=== PATIENT | female | born 1955 | race Caucasian/White ===

== ENCOUNTER 2017-08-29 18:27 | Inpatient (IN) | payer MEDICAID ==
[~2017-08-29 18:27] MED LIST: IOPAMIDOL (ISOVUE-300) 100 ML BTL ONE
--- NOTE | 2017-08-29 19:08 | CPEKG ---
Heart Rate: 83 RR Interval: 723 P-R Interval: 144 QRSD Interval: 84 QT Interval: 412 QTC Interval: 485 P Rolla: 51 QRS Rolla: -16 T Wave Rolla: 73 EKG Severity - OTHERWISE NORMAL ECG - EKG Impression: SINUS RHYTHM EKG Impression: BORDERLINE LEFT AXIS DEVIATION Electronically Signed By: Sloane Caballero 29-Aug-2017 21:03:46
[2017-08-29] MEDS ORDERED: ENOXAPARIN 80 MG/0.8 ML SYR SC ONE (19:20)
--- NOTE | 2017-08-29 19:20 | EDPHY ---
H & P Time Seen by Provider: 08/29/17 18:37 HPI/ROS: CHIEF COMPLAINT: Pulmonary embolism HISTORY OF PRESENT ILLNESS: 62-year-old female presents from CT scan with a pulmonary embolism. She was recently admitted to [facility] for myxedema coma. She was discharged home 1 week ago. Since discharge home, she has been getting stronger every day, but is still wheelchair-bound and her is caring for her. She had a routine follow up with her primary care physician today in the office and was noted to be hypoxic. According to the family, she was hypoxic throughout her hospitalization and was discharged home on oxygen. 1 week ago she developed left-sided pleuritic chest pain, which has persisted since then. No prior history of thromboembolism. REVIEW OF SYSTEMS: Constitutional: No fever, no chills Eyes: No visual changes ENT: No sore throat Respiratory: No cough Gastrointestinal: No nausea, no vomiting, no abdominal pain Genitourinary: no dysuria Musculoskeletal: No leg pain or swelling Skin: No rash Neurological: No headache, no weakness Psychiatric: No depression Past Medical/Surgical History: Myxedema coma Social History: , lives in own home Smoking Status: Former smoker Physical Exam: General Appearance: Alert, pleasant Eyes: Pupils equal and round, no conjunctival pallor or injection ENT, Mouth: Mucous membranes moist Neck: Normal inspection Respiratory: Rales at bases Cardiovascular: Regular rate and rhythm Gastrointestinal: Abdomen is soft and nontender Neurological: A&O, generalized weakness, gait not assessed Skin: Warm and dry Extremities: Nontender, no pedal edema Psychiatric: Flat affect Constitutional: Initial Vital Signs Temperature (C) 36.8 C 08/29/17 18:36 Heart Rate 105 H 08/29/17 18:36 Respiratory Rate 20 08/29/17 18:36 Blood Pressure 107/76 08/29/17 18:36 O2 Sat (%) 94 08/29/17 18:36 O2 Delivery Mode Room Air Allergies/Adverse Reactions: No Known Allergies Allergy (Verified 08/29/17 20:58) Home Medications: Medication Instructions Recorded Aspirin [Aspirin 81mg (*)] 81 mg PO DAILY 08/29/17 Ergocalciferol [Vitamin D2 (*)] 50,000 unit PO Q7D 08/29/17 Famotidine [Pepcid 20 MG (*)] 20 mg PO BID 08/29/17 Furosemide [Lasix 20 MG (*)] 20 mg PO DAILY@08,14 08/29/17 Levothyroxine [Synthroid 125 mcg 125 mcg PO DAILY06 08/29/17 (*)] Lisinopril [Zestril 2.5 mg (*)] 2.5 mg PO DAILY 08/29/17 Metoprolol Succinate Xr [Toprol Xl 25 mg PO DAILY 08/29/17 25 mg (*)] Mirtazapine [Remeron] 7.5 mg PO HS 08/29/17 Multivit/Mineral/Ferr Gluc 15 ml PO DAILY 08/29/17 [Cerovite Liquid (*)] Nystatin Susp [Mycostatin Oral 5 ml PO DAILY 08/29/17 Liquid] Potassium Chloride Po [Klor 20 meq PO DAILY 08/29/17 Packets 20 meq (*)] Medical Decision Making - Diagnostics EKG Interpretation: EKG interpreted by me reveals normal sinus rhythm, rate 83, no ST or T segment changes. Imaging Results: Imaging Impressions Chest/Thorax CTA 08/29/17 17:04 Impression: 1. Small volume pulmonary embolus segmental branch right lower lobe and subsegmental branch right upper lobe. 2. Bands of subsegmental atelectasis right lower lobe and left base posteriorly with small left effusion. 3. Mild cardiomegaly. Findings discussed with Mike Arias, at 1810 hour, 08/29/2017. ED Course/Re-evaluation: This patient presents from CT scan with pulmonary emboli. Oxygen saturation is 90% on room air. Discussion with the family regarding discharge home on anticoagulants versus admission to the hospital. The family would like to take her home eventually, but are having trouble caring for her at home. She is currently wheelchair-bound and needs assistance with all of her activities of daily living. She is set up to receive home health care, but has not received it yet. In addition, they are concerned about the possibility of her falling given that the she needs substantial help with transfers and with ambulation. She will be admitted to the hospital before tonight, and the plan will be to consider transfer to rehab on discharge. Lovenox 70 mg subcu given. Differential Diagnosis: Differential diagnosis includes though it is not limited to pneumonia, pneumothorax, pulmonary embolism, aortic dissection, pericarditis, acute coronary syndrome. - Data Points Laboratory Results: Laboratory Results 08/29/17 19:02 08/29/17 19:02 08/29/17 08/29/17 08/29/17 19:02 19:02 19:02 WBC 6.64 10^3/uL 10^3/uL (3.80-9.50) RBC 2.91 10^6/uL L 10^6/uL (4.18-5.33) Hgb 10.0 g/dL L g/dL (12.6-16.3) Hct 30.3 % L % (38.0-47.0) MCV 104.1 fL H fL (81.5-99.8) MCH 34.4 pg H pg (27.9-34.1) MCHC 33.0 g/dL g/dL (32.4-36.7) RDW 15.6 % H % (11.5-15.2) Plt Count 340 10^3/uL 10^3/uL (150-400) MPV 12.6 fL H fL (8.7-11.7) Neut % (Auto) 57.1 % % (39.3-74.2) Lymph % (Auto) 31.6 % % (15.0-45.0) Bradley % (Auto) 7.4 % % (4.5-13.0) Eos % (Auto) 2.1 % % (0.6-7.6) Baso % (Auto) 0.6 % % (0.3-1.7) Nucleat RBC Rel Count 0.0 % % (0.0-0.2) Absolute Neuts (auto) 3.79 10^3/uL 10^3/uL (1.70-6.50) Absolute Lymphs (auto) 2.10 10^3/uL 10^3/uL (1.00-3.00) Absolute Monos (auto) 0.49 10^3/uL 10^3/uL (0.30-0.80) Absolute Eos (auto) 0.14 10^3/uL 10^3/uL (0.03-0.40) Absolute Basos (auto) 0.04 10^3/uL 10^3/uL (0.02-0.10) Absolute Nucleated RBC 0.00 10^3/uL 10^3/uL (0-0.01) Immature Gran % 1.2 % H % (0.0-1.1) Immature Gran # 0.08 10^3/uL 10^3/uL (0.00-0.10) PT 13.6 SEC SEC (12.0-15.0) INR 1.02 (0.83-1.16) APTT 24.8 SEC SEC (23.0-38.0) Sodium 144 mEq/L mEq/L (135-145) Potassium 4.2 mEq/L mEq/L (3.5-5.2) Chloride 108 mEq/L mEq/L (97-110) Carbon Dioxide 24 mEq/l mEq/l (22-31) Anion Gap 12 mEq/L mEq/L (8-16) BUN 24 mg/dL H mg/dL (7-23) Creatinine 0.6 mg/dL mg/dL (0.6-1.0) Estimated GFR > 60 Glucose 97 mg/dL mg/dL (70-100) Calcium 9.9 mg/dL mg/dL (8.5-10.4) Troponin I < 0.012 ng/mL ng/mL (0.000-0.034) NT-Pro-B Natriuret Pep 280 pg/mL H pg/mL (0-125) Medications Given: Discontinued Medications Enoxaparin Sodium (Lovenox) 70 mg SC EDNOW ONE Stop: 08/29/17 19:21 Last Admin: 08/29/17 20:14 Dose: 70 mg Departure - Departure Disposition: [facility] Acute Clinical Impression: Pulmonary embolism Qualifiers: Pulmonary embolism type: other Chronicity: acute Acute cor pulmonale presence: without acute cor pulmonale Qualified Code(s): I26.99 - Other pulmonary embolism without acute cor pulmonale Condition: Fair
[2017-08-29 19:26] LABS: PLATELET COUNT 340 10^3/uL (150-400)
[2017-08-29 19:38] LABS: INR 1.02 (0.83-1.16); PROTIME(PATIENT) 13.6 SEC (12.0-15.0)
[2017-08-29] MEDS ORDERED: ACETAMINOPHEN 325 MG TAB PO PRN (22:35)
[2017-08-29] MEDS ORDERED: ONDANSETRON 4 MG/2 ML VIAL IVP PRN (22:35)
[2017-08-29] MEDS: NS 1,000 ML IV SCH (23:49)
--- NOTE | 2017-08-29 23:59 | PDGENHP ---
History and Physical - Chief Complaint left sided chest pain, SOB - History of Present Illness Source-at time of my interview patient is resting in her bed. Although she does acknowledge that I am there on she only mumbles yes or no answers and does not really interactive at this time. Case was discussed with patient's primary RN and EMR was reviewed. Case also discussed with the accepting hospitalist. HPI-this is a 62-year-old female with a history of a AH hypothyroidism was recently discharged after prolonged hospital stay at [facility] for myxedema coma who presents to the emergency department today with complaints of worsening shortness of breath and hypoxia. Patient had been requiring oxygen while hospitalized a few weeks ago. She is discharged home with supplemental oxygen as well. She continued to have left-sided pleuritic type chest pain worse with cough and inspiration. The patient was found to be hypoxic in the 80s at her PCPs office and so she was sent to the hospital for or further evaluation with CTA of the chest. Patient was noted to have small volume PE in this segmental branch of the right lower lobe and subsegmental branch of the right upper lobe. Patient also noted to have bilateral atelectasis and small left pleural effusion and mild cardiomegaly. Patient had persistent hypoxia with stable on her home oxygen however family also noted that time she has significant general weakness and deconditioning since her discharge. She still remains wheelchair-bound and has continues to have on significant cognitive deficits. Family at this time feel that patient is not able to return home safely and without any additional supportive services at home. At time of my interview patient was not very interactive as I mentioned above all she wanted to do was go to sleep. She initially would respond to a few yes or no questions but subsequently rolled over and turned away from me during interview. History Information - Allergies/Home Medication List Allergies/Adverse Reactions: No Known Allergies Allergy (Verified 08/29/17 20:58) Home Medications: Aspirin [Aspirin 81mg (*)] 81 mg PO DAILY 08/29/17 [Last Taken 08/29/17] Ergocalciferol [Vitamin D2 (*)] 50,000 unit PO Q7D 08/29/17 [Last Taken 08/23/17 ] Famotidine [Pepcid 20 MG (*)] 20 mg PO BID 08/29/17 [Last Taken 08/29/17 AM DOSE ] Furosemide [Lasix 20 MG (*)] 20 mg PO DAILY@08,14 08/29/17 [Last Taken 08/29/17] Levothyroxine [Synthroid 125 mcg (*)] 125 mcg PO DAILY06 08/29/17 [Last Taken ] Lisinopril [Zestril 2.5 mg (*)] 2.5 mg PO DAILY 08/29/17 [Last Taken 08/29/17] Metoprolol Succinate Xr [Toprol Xl 25 mg (*)] 25 mg PO DAILY 08/29/17 [Last Taken 08/29/17] Mirtazapine [Remeron] 7.5 mg PO HS 08/29/17 [Last Taken 08/28/17] Multivit/Mineral/Ferr Gluc [Cerovite Liquid (*)] 15 ml PO DAILY 08/29/17 [Last Taken Unknown] Nystatin Susp [Mycostatin Oral Liquid] 5 ml PO DAILY 08/29/17 [Last Taken Unknown] Potassium Chloride Po [Klor Packets 20 meq (*)] 20 meq PO DAILY 08/29/17 [Last Taken 08/29/17] I have personally reviewed and updated: family history, medical history, social history, surgical history - Past Medical History Additional medical history: Hypothyroidism with hospitalization for myxedema coma, dilated cardiomyopathy, moderate protein calorie malnutrition, GERD, generalized weakness and deconditioning. Urinary incontinence. - Surgical History Additional surgical history: Patient denies - Social History Smoking Status: Former smoker Alcohol Use: None Drug Use: None Additional social history: Patient is lives with her . Code status is full Review of Systems Review of Systems: Patient is denying all symptoms except that she is tired and wants to go to sleep ROS: 10pt was reviewed & negative except for what was stated in HPI & below Physical Exam Physical Exam: Selected Entries 08/29/17 18:36 Blood Pressure Automatic Method Heart Rate 105 H Respiratory 20 Rate O2 Sat (%) 94 Temperature (C) 36.8 C Blood Pressure 107/76 Mean Arterial 86 Pressure (MAP) O2 Delivery Room Air Mode Temperature Oral Source Temp Pulse Resp BP Pulse Ox 36.6 C 68 16 114/74 94 08/29/17 22:05 08/29/17 22:05 08/29/17 22:05 08/29/17 22:05 04/06/18 22:05 O2 (L/minute) 2 Constitutional: no apparent distress, chronically ill appearing, other (NAD. Patient is lying quietly in bed. She is minimally interactive answers with a few yes no answers and turned over was asleep.) Eyes: PERRL, anicteric sclera, EOMI (Grossly intact), No scleral injection Ears, Nose, Mouth, Throat: moist mucous membranes, No no oral mucosal ulcers, No poor dentition Cardiovascular: regular rate and rhythym, bradycardia, edema (Trace lower extremity.), other (No chest wall tenderness to palpation), No systolic murmur Peripheral Pulses: 1+: dorsalis-pedis (R), dorsalis-pedis (L) Respiratory: no respiratory distress, no rales or rhonchi, clear to auscultation , reduced air movement (Decreased inspiratory effort bibasilarly.) Gastrointestinal: normoactive bowel sounds, soft, non-tender abdomen, no palpable masses, No tenderness, No distension Genitourinary: no bladder tenderness, No philip in urethra Skin: warm, normal color, no rashes or abrasions, other (Pallor) Musculoskeletal: no muscle tenderness, generalized weakness, other (Patient able to move all extremities. 4/5 strength upper lower extremities.), No pain with ROM Neurologic: sensation intact bilaterally, weakness (Generalized), other ( Patient is awake alert and oriented to person and place only. Poor historian. Grossly nonfocal exam.), No facial droop Psychiatric: not encephalopathic, flat affect, other (Limited evaluation secondary to patient's cooperation.) Lab Data & Imaging Review 08/30/17 04:18 08/30/17 04:18 WBC 6.64 10^3/uL (3.80-9.50) 08/29/17 19:02 RBC 2.91 10^6/uL (4.18-5.33) L 08/29/17 19:02 Hgb 10.0 g/dL (12.6-16.3) L 08/29/17 19:02 Hct 30.3 % (38.0-47.0) L 08/29/17 19:02 MCV 104.1 fL (81.5-99.8) H 08/29/17 19:02 MCH 34.4 pg (27.9-34.1) H 08/29/17 19:02 MCHC 33.0 g/dL (32.4-36.7) 08/29/17 19:02 RDW 15.6 % (11.5-15.2) H 08/29/17 19:02 Plt Count 340 10^3/uL (150-400) 08/29/17 19:02 MPV 12.6 fL (8.7-11.7) H 08/29/17 19:02 Neut % (Auto) 57.1 % (39.3-74.2) 08/29/17 19:02 Lymph % (Auto) 31.6 % (15.0-45.0) 08/29/17 19:02 Major % (Auto) 7.4 % (4.5-13.0) 08/29/17 19:02 Eos % (Auto) 2.1 % (0.6-7.6) 08/29/17 19:02 Baso % (Auto) 0.6 % (0.3-1.7) 08/29/17 19:02 Nucleat RBC Rel Count 0.0 % (0.0-0.2) 08/29/17 19:02 Absolute Neuts (auto) 3.79 10^3/uL (1.70-6.50) 08/29/17 19:02 Absolute Lymphs (auto) 2.10 10^3/uL (1.00-3.00) 08/29/17 19:02 Absolute Monos (auto) 0.49 10^3/uL (0.30-0.80) 08/29/17 19:02 Absolute Eos (auto) 0.14 10^3/uL (0.03-0.40) 08/29/17 19:02 Absolute Basos (auto) 0.04 10^3/uL (0.02-0.10) 08/29/17 19:02 Absolute Nucleated RBC 0.00 10^3/uL (0-0.01) 08/29/17 19:02 Immature Gran % 1.2 % (0.0-1.1) H 08/29/17 19:02 Immature Gran # 0.08 10^3/uL (0.00-0.10) 08/29/17 19:02 PT 13.6 SEC (12.0-15.0) 08/29/17 19:02 INR 1.02 (0.83-1.16) 08/29/17 19:02 APTT 24.8 SEC (23.0-38.0) 08/29/17 19:02 Sodium 144 mEq/L (135-145) 08/29/17 19:02 Potassium 4.2 mEq/L (3.5-5.2) 08/29/17 19:02 Chloride 108 mEq/L (97-110) 08/29/17 19:02 Carbon Dioxide 24 mEq/l (22-31) 08/29/17 19:02 Anion Gap 12 mEq/L (8-16) 08/29/17 19:02 BUN 24 mg/dL (7-23) H 08/29/17 19:02 Creatinine 0.6 mg/dL (0.6-1.0) 08/29/17 19:02 Estimated GFR > 60 08/29/17 19:02 Glucose 97 mg/dL (70-100) 08/29/17 19:02 Calcium 9.9 mg/dL (8.5-10.4) 08/29/17 19:02 Troponin I < 0.012 ng/mL (0.000-0.034) 08/29/17 19:02 NT-Pro-B Natriuret Pep 280 pg/mL (0-125) H 08/29/17 19:02 Laboratory Tests 08/29/17 08/29/17 19:02 19:02 WBC 6.64 RBC 2.91 L Hgb 10.0 L Hct 30.3 L MCV 104.1 H MCH 34.4 H MCHC 33.0 RDW 15.6 H Plt Count 340 MPV 12.6 H Neut % (Auto) 57.1 Lymph % (Auto) 31.6 Major % (Auto) 7.4 Eos % (Auto) 2.1 Baso % (Auto) 0.6 Nucleat RBC Rel Count 0.0 Absolute Neuts (auto) 3.79 Absolute Lymphs (auto) 2.10 Absolute Monos (auto) 0.49 Absolute Eos (auto) 0.14 Absolute Basos (auto) 0.04 Absolute Nucleated RBC 0.00 Immature Gran % 1.2 H Immature Gran # 0.08 Sodium 144 Potassium 4.2 Chloride 108 Carbon Dioxide 24 Anion Gap 12 BUN 24 H Creatinine 0.6 Estimated GFR > 60 Glucose 97 Calcium 9.9 Troponin I < 0.012 NT-Pro-B Natriuret Pep 280 H Imaging Review: CT Pulmonary Angiogram 1727 hours Clinical Indications: R07.81 Pleuritic chest pain with low oxygenation saturation. Technique: Thinly collimated multidetector helical CT imaging was performed through the chest while 100 mL Isovue-370 were injected intravenously without complication. The images were reconstructed in multiple planes. Dose reduction techniques were utilized. Findings: CT Angiogram: There is subsegmental pulmonary embolus to the right lower lobe and involving small subsegmental branches to the right upper lobe is partially occlusive. No additional pulmonary emboli are seen. The thoracic aorta has a normal contour without evidence of aneurysm or dissection. There is no pericardial effusion. The cardiac chambers are mildly enlarged. CT Chest: There is band of atelectasis involving the right lower lobe posteriorly and adjacent to the left hemidiaphragm. There is poor inspiration. There is no consolidation. There is small left effusion. There are no pulmonary nodules. Soft tissues are unremarkable. The visualized upper abdominal structures are unremarkable during arterial phase of imaging. Skeletal system: Vertebral body heights are well-maintained. There are no lytic or sclerotic osseous lesions. Degenerative disk disease is present mid to lower thoracic spine with mild accentuation of the anterior kyphosis and marginal osteophytes. Impression: 1. Small volume pulmonary embolus segmental branch right lower lobe and subsegmental branch right upper lobe. 2. Bands of subsegmental atelectasis right lower lobe and left base posteriorly with small left effusion. 3. Mild cardiomegaly. Findings discussed with Mike Arias, at 1810 hour, 08/29/2017. Visualized and Interpreted imaging results: Yes EKG additional interpertation: Normal sinus rhythm in the 80s. LAD. QTC 45. No acute ST elevations. Assessment & Plan Assessment: 62-year-old female with history of recent hospital stay for myxedema coma presents with 1 week history of worsening dyspnea and right-sided pleuritic chest pain #Pulmonary embolism (Acute) - patient has been started on therapeutic Lovenox. Will defer to day team for evaluation and qualification for novel anticoagulant therapy versus Coumadin therapy. #hypothyroidism with history of myxedema coma - continue with levothyroxine supplementation. # dilated cardiomyopathy - continue patient's lisinopril. Metoprolol. Aspirin. #generalized weakness/deconditioning - PT OT evaluation. Case management follow -up for home health services pro #weight loss with moderate protein calorie nutrition - dietary consultation. #dehydration - elevated BUN. gentle IV fluid hydration overnight. Monitor fluid status closely. # anemia-likely related to anemia chronic disease was hypothyroidism. Continue replacement as noted above. No evidence of active bleeding at this time continue monitor H&H. # GERD-continue to famotidine. FEN - IV fluids with normal saline for gentle hydration overnight. Electrolyte monitoring replacement p.r.n.. Diet as tolerated. PPX-therapeutic Lovenox as noted above. Cor status-is full Disposition-patient admitted observation status at this time.
[2017-08-30 05:32] LABS: PLATELET COUNT 301 10^3/uL (150-400)
[2017-08-30] MEDS: ENOXAPARIN 80 MG/0.8 ML SYR SC SCH ×2 (08:42→20:44)
[2017-08-30] MEDS: FAMOTIDINE 20 MG TAB PO SCH ×2 (08:43→20:45)
[2017-08-30] MEDS: FUROSEMIDE 20 MG TAB PO SCH ×2 (08:43→15:50)
[2017-08-30] MEDS: ASPIRIN 81 MG CHEWABLE TAB PO SCH (08:43)
[2017-08-30] MEDS: METOPROLOL SUCCINATE XR 25 MG TAB PO SCH (08:43)
[2017-08-30] MEDS ORDERED: LISINOPRIL 2.5 MG TAB PO SCH (09:00)
[2017-08-30] MEDS: LEVOTHYROXINE 125 MCG TAB PO SCH (09:11)
[2017-08-30] MEDS: LISINOPRIL 5 MG TAB PO SCH (09:12)
[2017-08-30] MEDS: NS 1,000 ML IV SCH (13:00)
--- NOTE | 2017-08-30 13:50 | HOSPPROG ---
Hospitalist Progress Note Assessment/Plan: 62-year-old female with history of recent hospital stay for myxedema coma presents with 1 week history of worsening dyspnea and right-sided pleuritic chest pain. First encounter, chart reviewed. D/W RN, KESHAV. #Pulmonary embolism (Acute) - patient has been started on therapeutic Lovenox. will start coumadin #hypothyroidism with history of myxedema coma - continue with levothyroxine supplementation # dilated cardiomyopathy - continue patient's lisinopril. Metoprolol. Aspirin. #generalized weakness/deconditioning - PT OT evaluation. Case management follow-up for home health services #weight loss with moderate protein calorie nutrition - dietary consultation. #dehydration - elevated BUN. gentle IV fluid hydration overnight. Monitor fluid status closely. # anemia- likely related to anemia chronic disease with hypothyroidism. Continue replacement as noted above. No evidence of active bleeding at this time continue monitor H&H. # GERD- continue to famotidine. FEN - IV fluids with normal saline for gentle hydration overnight. Electrolyte monitoring replacement p.r.n.. Diet as tolerated. PPX-therapeutic Lovenox as noted above. Cor status-is full Disposition change to inpt status further care in the hospital setting is needed CM to eval will need C Subjective: Feeling ok today. Still very tired. Weak. No pain. Objective: Vital Signs Temp Pulse Resp BP Pulse Ox 36.4 C 66 20 108/69 96 08/30/17 11:27 08/30/17 11:27 08/30/17 11:27 08/30/17 11:27 08/30/17 11:27 Laboratory Results 08/30/17 04:18 08/30/17 04:18 08/29/17 08/30/17 08/31/17 05:59 05:59 05:59 Intake Total 600 Balance 600 PT 13.6 SEC (12.0-15.0) 08/29/17 19:02 INR 1.02 (0.83-1.16) 08/29/17 19:02 - Physical Exam Constitutional: appears nourished, not in pain, chronically ill appearing Eyes: PERRL, anicteric sclera, EOMI Ears, Nose, Mouth, Throat: moist mucous membranes, hearing normal, ears appear normal Cardiovascular: No JVD, No tachycardia, No edema Respiratory: no respiratory distress, no rales or rhonchi, reduced air movement Gastrointestinal: normoactive bowel sounds, No tenderness, No ascites Skin: warm, normal color, No mottled Musculoskeletal: normal joint ROM, no joint effusions, generalized weakness Psychiatric: not anxious, not encephalopathic, poor insight, poor judgement, poor memory ICD10 Worksheet Patient Problems: Problems Problem Status Onset Pulmonary embolism Acute
--- NOTE | 2017-08-30 14:19 | PDMN ---
Medical Necessity Medical necessity: C/M review: est. > 2 MN LOS for eval and TX of acute pulmonary embolism, dehydration, generalized weakness / deconditioning, requiring planned Dietary consult, Case Management consult, ongoing subcutaneous Lovenox, start oral Coumadin, IV fluids, acute inpt PT/OT, comorbid hypothyroidism with history of myxedema coma, dilated cardiomyopathy, weight loss, anemia, GERD per 08/30/2017 Hospitalist progress note.
--- NOTE | 2017-08-30 15:01 | ASMTCMCOM ---
CM Note CM Note Notes: Pt. is a 62-year-old woman admitted for a PE. Pt. w/ hx. of a very recent 2-week admission to [facility] for a myxedema coma. Pt. is now affected mentally and physically. Wheelchair bound and incontinent per RN. Pt. has Medicaid insurance and is open with [facility] for PT and OT. SWer spoke w/ , Antony on the phone today. Antony is very engaged and states he can care for Pt. at home with skilled homecare, but she has so been so affected by this coma and is trying to adjust to her needs. Antony very pleased to have [facility] Inpatient Rehab consult on Pt's case. Hopes they can admit her to help her get some of her abilities back. Antony and Pt. work for a [employer] and only get paid through donations. No funds for private duty care at home. SWer and hospitalist consulted. Hospitalist already entered Inpt. Rehab consult order. PT and OT to evaluate. Please note SNF care for Pt. will only be LTC Medicaid stay without rehab, so best plans for Pt's ongoing rehab recovery are Inpatient rehab or skilled homecare. Antony mentioned three adult children - two boys and one girl. Dexter is one son. Pt's PCP is through [facility] in [place] now. Rocio updated bedboard with Pt's 's information. [employer] referral made to [facility]. Plan: Inpatient Rehab vs Skilled homecare with [facility] (RN, PT, OT) Date Signed: 08/30/2017 03:01 PM Electronically Signed By:Loly Choudhary LCSW
[2017-08-30] MEDS ORDERED: WARFARIN SODIUM 5 MG TAB PO ONE (16:00)
[2017-08-30] MEDS: MIRTAZAPINE 15 MG TAB PO SCH (20:43)
[2017-08-30] MEDS ORDERED: NON-FORMULARY NEW DRUG (Mirtazapine [Remeron] 7.5 MG) PO SCH (21:00)
[2017-08-31] MEDS: NS 1,000 ML IV SCH ×2 (03:10→16:38)
[2017-08-31] MEDS: LEVOTHYROXINE 125 MCG TAB PO SCH (04:40)
[2017-08-31 05:33] LABS: INR 1.11 (0.83-1.16); PROTIME(PATIENT) 14.5 SEC (12.0-15.0)
[2017-08-31] MEDS: LISINOPRIL 5 MG TAB PO SCH (10:05)
[2017-08-31] MEDS: ASPIRIN 81 MG CHEWABLE TAB PO SCH (10:06)
[2017-08-31] MEDS: FUROSEMIDE 20 MG TAB PO SCH ×2 (10:07→15:02)
[2017-08-31] MEDS: METOPROLOL SUCCINATE XR 25 MG TAB PO SCH (10:07)
[2017-08-31] MEDS: FAMOTIDINE 20 MG TAB PO SCH ×2 (10:07→20:05)
[2017-08-31] MEDS: ENOXAPARIN 80 MG/0.8 ML SYR SC SCH ×2 (10:11→20:05)
--- NOTE | 2017-08-31 10:56 | HOSPPROG ---
Hospitalist Progress Note Assessment/Plan: 62-year-old female with history of recent hospital stay for myxedema coma presents with 1 week history of worsening dyspnea and right-sided pleuritic chest pain. #Pulmonary embolism (Acute) - patient has been started on therapeutic Lovenox. coumadin #hypothyroidism with history of myxedema coma - continue with levothyroxine supplementation TSH in good range no medication adjustments at this time # dilated cardiomyopathy - continue patient's lisinopril. Metoprolol. Aspirin. #generalized weakness/deconditioning - PT OT evaluation. I'm rec inpatient rehab awake eval #weight loss with moderate protein calorie nutrition - dietary consultation. #dehydration - elevated BUN. gentle IV fluid hydration overnight. Monitor fluid status closely. # anemia- likely related to anemia chronic disease with hypothyroidism. Continue replacement as noted above. No evidence of active bleeding at this time continue monitor H&H. # GERD- continue to famotidine. #FEN - Diet as tolerated. PPX-therapeutic Lovenox as noted above. Cor status-is full #Disposition - further care in the hospital setting is needed CM to eval await inpt rehab eval Subjective: Feels a bit better today. Still some confusion. Objective: Vital Signs Temp Pulse Resp BP Pulse Ox 36.7 C 74 16 143/92 H 90 L 08/31/17 08:00 08/31/17 10:07 08/31/17 08:00 08/31/17 10:07 08/31/17 08:00 Laboratory Results 08/31/17 04:27 08/31/17 04:27 08/30/17 08/31/17 09/01/17 05:59 05:59 05:59 Intake Total 600 1900 Balance 600 1900 PT 14.5 SEC (12.0-15.0) 08/31/17 04:27 INR 1.11 (0.83-1.16) 08/31/17 04:27 - Physical Exam Constitutional: appears nourished, not in pain, chronically ill appearing Eyes: PERRL, anicteric sclera, EOMI Ears, Nose, Mouth, Throat: moist mucous membranes, hearing normal, ears appear normal Cardiovascular: No JVD, No tachycardia, No edema Respiratory: no respiratory distress, no rales or rhonchi, reduced air movement Gastrointestinal: normoactive bowel sounds, No tenderness, No ascites Skin: warm, normal color, No mottled Musculoskeletal: normal joint ROM, pain with ROM, generalized weakness Neurologic: AAOx3 Psychiatric: not anxious, not encephalopathic, poor memory ICD10 Worksheet Patient Problems: Problems Problem Status Onset Pulmonary embolism Acute
[2017-08-31] MEDS ORDERED: WARFARIN SODIUM 5 MG TAB PO ONE (16:00)
[2017-08-31] MEDS: MIRTAZAPINE 15 MG TAB PO SCH (20:05)
[2017-09-01] MEDS: LEVOTHYROXINE 125 MCG TAB PO SCH (05:20)
[2017-09-01 05:23] LABS: INR 1.21 (0.83-1.16); PROTIME(PATIENT) 15.5 SEC (12.0-15.0)
[2017-09-01] MEDS: NS 1,000 ML IV SCH (06:04)
[2017-09-01] MEDS: LISINOPRIL 5 MG TAB PO SCH (09:47)
[2017-09-01] MEDS: FUROSEMIDE 20 MG TAB PO SCH ×2 (09:49→17:39)
[2017-09-01] MEDS: ASPIRIN 81 MG CHEWABLE TAB PO SCH (09:50)
[2017-09-01] MEDS: FAMOTIDINE 20 MG TAB PO SCH ×2 (09:50→20:13)
[2017-09-01] MEDS: METOPROLOL SUCCINATE XR 25 MG TAB PO SCH (09:50)
[2017-09-01] MEDS: ENOXAPARIN 80 MG/0.8 ML SYR SC SCH ×2 (09:53→20:14)
--- NOTE | 2017-09-01 14:59 | ASMTCMCOM ---
CM Note CM Note Notes: CM spoke w/ Dr. Sharp and Aranza at inpatient rehab regarding d/c POC. Aranza reports that she may or may not have a bed available tomorrow for pt. CM met w/ pt and family for d/c planning. Pt and family would like inpatient rehab as their first choice and the second choice is home w/ daily [facility]. Pt was previously set up w/ [facility] prior to coming to the hospital. Pt and family are not interested in restorative therapies at SNF. CM to follow. Plan: Inpatient rehab Date Signed: 09/01/2017 02:58 PM Electronically Signed By:HERSON Ontiveros
[2017-09-01] MEDS ORDERED: WARFARIN SODIUM 5 MG TAB PO ONE (16:00)
[2017-09-01] MEDS ORDERED: FUROSEMIDE 20 MG/2 ML VIAL ONE (16:14)
--- NOTE | 2017-09-01 16:14 | HOSPPROG ---
Hospitalist Progress Note Assessment/Plan: # acute PE - cont lovenox with bridge to warfarin # recent diagnosis of myxedema coma - cont synthroid # dilated cardiomyopathy - stopped lasix and aspirin - cont lisino and metop # FEN - dehydrated on presentation - stop lasix and IVF, follow # macrocytic anemia - stable # weakness/deconditioning - PT/OT; accepted to inpatient rehab # GERD - pepcid Subjective: doing better overall; discussed at length with patient, son and Objective: Vital Signs Temp Pulse Resp BP Pulse Ox 36.6 C 68 18 119/76 94 09/01/17 15:42 09/01/17 15:42 09/01/17 15:42 09/01/17 15:42 09/01/17 15:42 Laboratory Results 08/31/17 04:27 08/31/17 04:27 08/31/17 09/01/17 09/02/17 05:59 05:59 05:59 Intake Total 1900 250 Balance 1900 250 PT 15.5 SEC (12.0-15.0) H 09/01/17 04:28 INR 1.21 (0.83-1.16) H 09/01/17 04:28 chart reviewed CTA reviewed - Physical Exam Constitutional: no apparent distress Cardiovascular: regular rate and rhythym, no murmur, rub, or gallop Respiratory: no respiratory distress, no rales or rhonchi Gastrointestinal: soft, non-tender abdomen, no palpable masses ICD10 Worksheet Patient Problems: Problems Problem Status Onset Pulmonary embolism Acute
[2017-09-01] MEDS: MIRTAZAPINE 15 MG TAB PO SCH (20:13)
[2017-09-02 06:19] LABS: INR 1.57 (0.83-1.16); PROTIME(PATIENT) 18.9 SEC (12.0-15.0)
[2017-09-02] MEDS: LEVOTHYROXINE 125 MCG TAB PO SCH (06:20)
[2017-09-02] MEDS: LISINOPRIL 5 MG TAB PO SCH (09:31)
[2017-09-02] MEDS: FAMOTIDINE 20 MG TAB PO SCH ×2 (09:32→21:34)
[2017-09-02] MEDS: METOPROLOL SUCCINATE XR 25 MG TAB PO SCH (09:33)
[2017-09-02] MEDS: ENOXAPARIN 80 MG/0.8 ML SYR SC SCH ×2 (09:33→21:33)
--- NOTE | 2017-09-02 14:37 | HOSPPROG ---
Hospitalist Progress Note Assessment/Plan: # acute PE - cont lovenox with bridge to warfarin # recent diagnosis of myxedema coma - cont synthroid # dilated cardiomyopathy - stopped lasix and aspirin - cont lisino and metop # FEN - dehydrated on presentation - stop lasix and IVF, follow # macrocytic anemia - stable # weakness/deconditioning - PT/OT; accepted to inpatient rehab # GERD - pepcid # dispo - to inpatient rehab when bed available Subjective: no acute events; sitting in chair, seen with Objective: Vital Signs Temp Pulse Resp BP Pulse Ox 36.6 C 68 16 129/89 H 96 09/02/17 11:01 09/02/17 11:01 09/02/17 11:01 09/02/17 11:01 09/02/17 11:01 Laboratory Results 08/31/17 04:27 09/02/17 04:18 09/01/17 09/02/17 09/03/17 05:59 05:59 05:59 Intake Total 250 1175 500 Output Total 400 Balance 250 1175 100 PT 18.9 SEC (12.0-15.0) H 09/02/17 04:18 INR 1.57 (0.83-1.16) H 09/02/17 04:18 - Physical Exam Constitutional: no apparent distress, appears nourished Cardiovascular: regular rate and rhythym, no murmur, rub, or gallop Respiratory: no respiratory distress, no rales or rhonchi Gastrointestinal: soft, non-tender abdomen, no palpable masses ICD10 Worksheet Patient Problems: Problems Problem Status Onset Pulmonary embolism Acute
--- NOTE | 2017-09-02 15:34 | ASMTCMCOM ---
KESHAV Note CM Note Notes: KESHAV spoke w/ Aranza in inpatient rehab. Aranza does not have a bed available for pt today. There might be a bed available tomorrow. KESHAV communicated this w/ Dr. Sharp. KESHAV to follow. Plan: Inpatient rehab is the family's first choice if not daily Family [facility] Date Signed: 09/02/2017 03:34 PM Electronically Signed By:HERSON Ontiveros
[2017-09-02] MEDS ORDERED: WARFARIN SODIUM 5 MG TAB PO ONE (16:00)
[2017-09-02] MEDS: MIRTAZAPINE 15 MG TAB PO SCH (21:34)
[2017-09-03 05:29] LABS: INR 1.87 (0.83-1.16); PROTIME(PATIENT) 21.6 SEC (12.0-15.0)
[2017-09-03] MEDS: LEVOTHYROXINE 125 MCG TAB PO SCH (06:00)
[2017-09-03 08:04] VITALS: BP 144/84
[2017-09-03] MEDS: FAMOTIDINE 20 MG TAB PO SCH (09:25)
[2017-09-03] MEDS: LISINOPRIL 5 MG TAB PO SCH (09:26)
[2017-09-03] MEDS: METOPROLOL SUCCINATE XR 25 MG TAB PO SCH (09:27)
[2017-09-03] MEDS: ENOXAPARIN 80 MG/0.8 ML SYR SC SCH (09:28)
--- NOTE | 2017-09-03 11:41 | PDIAF ---
- Diagnosis Diagnosis: pe Code Status: Full Code - Medication Management Discharge Medications: Medications to Continue on Transfer Ergocalciferol [Vitamin D2 (*)] 50,000 unit PO Q7D 08/29/17 [Last Taken 08/23/17 ] Famotidine [Pepcid 20 MG (*)] 20 mg PO BID 08/29/17 [Last Taken 08/29/17 AM DOSE ] Levothyroxine [Synthroid 125 mcg (*)] 125 mcg PO DAILY06 08/29/17 [Last Taken ] Lisinopril [Zestril 2.5 mg (*)] 2.5 mg PO DAILY 08/29/17 [Last Taken 08/29/17] Metoprolol Succinate Xr [Toprol Xl 25 mg (*)] 25 mg PO DAILY 08/29/17 [Last Taken 08/29/17] Mirtazapine [Remeron] 7.5 mg PO HS 08/29/17 [Last Taken 08/28/17] Acetaminophen [Tylenol 325mg (*)] 650 mg PO Q4HRS PRN tab 09/03/17 [Last Taken Unknown] Enoxaparin [Lovenox 80 MG (*)] 70 mg SC BID syr 09/03/17 [Last Taken Unknown] Warfarin Sodium [Coumadin 5MG (*)] 7.5 mg PO ONCE@1600 tab 09/03/17 [Last Taken Unknown] Warfarin Sodium [Warfarin Pharmacy To Dose] 1 each MISC AD ea 09/03/17 [Last Taken Unknown] Discharge Medications: Refer to the Discharge Home Medication list for PRN reason. PICC Care - Routine: N/A - Orders Services needed: Registered Nurse, Physical Therapy, Occupational Therapy, Speech Language Pathologist Diet Recommendation: no restrictions on diet - Labs/Radiology PT/INR Date: 09/04/17 - Follow Up Care Current Providers and Referrals: NONE *PRIMARY CARE P,. [Primary Care Provider] - As per Instructions
[2017-09-03] MEDS ORDERED: WARFARIN SODIUM 5 MG TAB PO ONE (16:00)
[2017-09-03] MEDS ORDERED: WARFARIN SODIUM 7.5 MG TAB PO ONE (16:00)
--- NOTE | 2017-09-03 17:12 | ASDISCHSUM ---
Discharge Information Plan Status:Inpatient Rehab Medically Cleared to Leave: Discharge Date:09/03/2017 03:00 PM D/C Disposition:[facility] IP ADT D/C Disposition:[facility] IP Projected Discharge Date:09/03/2017 11:00 AM Transportation at D/C:Medicaid Transportation Discharge Delay Reason: Follow-Up Date:09/03/2017 11:00 AM Discharge Slot: Final Diagnosis: Placement Information Referral Type:*Home Health Care Services Referral ID:[id number] Provider Name: Address 1: Phone Number: Address 2: Fax Number: City: Selection Factors: State: Referral Type:[facility] Referral ID:[id number] Provider Name:[facility] Address 1:[address] Phone Number: Address 2: Fax Number: [facility]:[place] Selection Factors: State:[place] Patient Contact Information Contact Name:FRANSISCA Relationship: Address:[facility] Work Phone: City:[place] Phone: State/Zip Code:[place] [address] Email: Financial Information Financial Class:Medicaid Primary Plan Desc:MEDICAID [facility] Primary Plan Number:[id number] Secondary Plan Desc: Secondary Plan Number: Assessment Information [facility] CM Progress Note CM Note CM Note Notes: Pt. is a 62-year-old woman admitted for a PE. Pt. w/ hx. of a very recent 2-week admission to [facility] for a myxedema coma. Pt. is now affected mentally and physically. Wheelchair bound and incontinent per RN. Pt. has Medicaid insurance and is open with [facility] for PT and OT. Rocio spoke w/ , Antony on the phone today. Antony is very engaged and states he can care for Pt. at home with skilled homecare, but she has so been so affected by this coma and is trying to adjust to her needs. Antony very pleased to have [facility] Inpatient Rehab consult on Pt's case. Hopes they can admit her to help her get some of her abilities back. Antony and Pt. work for a [employer] and only get paid through donations. No funds for private duty care at home. SWer and hospitalist consulted. Hospitalist already entered Inpt. Rehab consult order. PT and OT to evaluate. Please note SNF care for Pt. will only be LT Medicaid stay without rehab, so best plans for Pt's ongoing rehab recovery are Inpatient rehab or skilled homecare. Antony mentioned three adult children - two boys and one girl. Dexter is one son. Pt's PCP is through [facility]. Rocio updated bedboard with Pt's 's information. [facility] referral made to [facility]. Plan: Inpatient Rehab vs Skilled homecare with [facility] (RN, PT, OT) Date Signed: 08/30/2017 03:01 PM Electronically Signed By:Loly Choudhary LCSW [facility] CM Progress Note CM Note CM Note Notes: CM spoke w/ Dr. Sharp and Aranza at inpatient rehab regarding d/c POC. Aranza reports that she may or may not have a bed available tomorrow for pt. CM met w/ pt and family for d/c planning. Pt and family would like inpatient rehab as their first choice and the second choice is home w/ daily [facility]. Pt was previously set up w/ [facility] prior to coming to the hospital. Pt and family are not interested in restorative therapies at SNF. CM to follow. Plan: Inpatient rehab Date Signed: 09/01/2017 02:58 PM Electronically Signed By:HERSON Ontiveros [facility] CM Progress Note KESHAV Note KESHAV Note Notes: KESHAV spoke w/ Aranza in inpatient rehab. [facility] does not have a bed available for pt today. There might be a bed available tomorrow. KESHAV communicated this w/ Dr. Sharp. KESHAV to follow. Plan: Inpatient rehab is the family's first choice if not daily [facility] Date Signed: 09/02/2017 03:34 PM Electronically Signed By:HERSON Ontiveros Case Management Discharge Plan Note Case Management Discharge Discharge Order Complete? Answers: Yes Patient to Obtain Answers: Other Notes: Inpt Rehab Medications Transportation Arranged Answers: PEGGY W/C Transport will Pick (Date 09/03/2017 02:30 PM & Time) Faxed Final Orders Answers: Yes Family Notified Answers: Yes Discharge Comments Notes: D/w ASSET PROTECTION ASSISTANT, final orders in chart. Aranza at Inpt rehab notified. Medicaid wheelchair transportation arranged through [facility]. MOSQUERA to call report. Date Signed: 09/03/2017 12:59 PM Electronically Signed By:Mariaelena Barnard RN LACE LACE Length of stay for Answers: 4-6 days current admission Acuity / Level of Answers: Yes Care: Did the patient have an inpatient admission? Comorbidities - select Answers: Coronary Artery Disease all that apply Other Notes: gerd, incontinenece,hyp oth yroid # of Emergency department Answers: 1-2 visits in the last 6 months Score: 11 Date Signed: 09/03/2017 01:03 PM Electronically Signed By:Mariaelena Barnard RN Intervention Information Intervention Type:*IM-Signed Date of Service:09/01/2017 02:28 PM Patient Type:Inpatient Staff Member:HERSON Narayanan Michelle Hours: Discipline: Severity: Comment:
--- NOTE | 2017-09-03 22:02 | GDS ---
[f rep st] DISCHARGE SUMMARY DISCHARGE DIAGNOSES: 1. Pulmonary emboli. 2. Recent diagnosis of myxedema coma. 3. Dilated cardiomyopathy. 4. Macrocytic anemia. 5. Weakness with deconditioning. PHYSICAL EXAMINATION: GENERAL: The patient is alert. VITAL SIGNS: Afebrile at 36.7, pulse 72, res piratory rate 16. Blood pressure is 144/84. She is saturating 91% on room air. I have seen and evaluated the patient on the day of discharge. HOSPITAL COURSE: Patient is a 62-year-old female who presented to the emergency room with complaints of chest pain. She was evaluated and diagnosed with: 1. Acute pulmonary emboli. During this hospitalization, she was initiated on Coumadin, as well as b ridged with Lovenox therapy. She will continue this in the outpatient setting. 2. Recent diagnosis of myxedema coma. The patient will continue her previously ordered Synthroid. Her TSH is stable. 3. Dilated cardiomyopathy. Her Lasix and aspirin have been discontinued. She will stay on lisinopr il and metoprolol. 4. Dehydration. The patient has responded well to IV fluids and discontinuation of her Lasix. 5. Microcytic anemia. This is stable. 6. Deconditioning and weakness. The patient has been accepted at inpatient rehabilitation. I think that this is an amazing opportuni ty for her to become stronger and get rehabilitation in the outpatient setting. There are no pending studies. DISCHARGE MEDICATIONS: Please refer to EMR form. New medications include: Coumadin, as well as Lovenox. She will have an INR evaluated in 2 days. DISPOSITION: She will be discharged to inpatient rehabilitation for further strengthening. TIME: I spent greater than 35 minutes in the care, coordination, and management of the patient's dis position. /[id number]/MODL
== END 2017-09-03 15:00 | DRG 134 ==
LOC: EDSTATUS 18:27 → OBSVTOIN 19:54 → F3E 21:17
PROVIDERS: ADMIT Hospitalist; ATTEND Student in an Organized Health Care Education/Training Program
DX: I26.99 Other pulmonary embolism without acute cor pulmonale (principal); I42.0 Dilated cardiomyopathy; E86.0 Dehydration; R53.1 Weakness; E44.0 Moderate protein-calorie malnutrition; E03.9 Hypothyroidism, unspecified; D63.8 Anemia in other chronic diseases classified elsewhere; K21.9 Gastro-esophageal reflux disease without esophagitis; Z87.891 Personal history of nicotine dependence; Z99.3 Dependence on wheelchair
CPT/HCPCS: 84481-90; 97110-GP; 97116-GP; 97162-GP; 97166-GO; 97530-GP; 97535-GO; G0378; J1650; J1940; Q9967

== ENCOUNTER 2017-09-03 15:30 | Inpatient (IN) | payer MEDICAID ==
[2017-09-03] MEDS ORDERED: WARFARIN SODIUM 7.5 MG TAB PO ONE (16:15)
[2017-09-03] MEDS ORDERED: ACETAMINOPHEN 325 MG TAB PO PRN (16:27)
--- NOTE | 2017-09-03 18:21 | GHP ---
[f rep st] HISTORY AND PHYSICAL POST ADMISSION PHYSICIAN EVALUATION AND REHABILITATION TREATMENT PLAN. DATE OF ADMISSION: 09/03/2017 DATE OF EVALUATION: 09/03/2017 TIME OF EVALUATION: 1640. REFERRING FACILITY: [facility] IMPAIRMENT GROUP: [id number]. DATE OF ONSET: 08/30/2017 REHABILITATION DIAGNOSIS: Dr. Plunkett. CONSULTING PHYSICIANS: There were none. REHABILITATION DIAGNOSIS: Pulmonary embolus and debility related to recent myxedema coma. ETIOLOGIC DIAGNOSIS: Other medically complex conditions. HISTORY OF PRESENT ILLNESS: This patient was recently discharged from [facility] after a prolonged stay for myxedema coma. She went home where she had physical therapy, but came to the emergency department at [facility] on 08/30/2017, with worsening dyspnea and hypoxia. She had been seen by her primary care provider and found to be hypoxic with oxygen saturation in the 80s. She had a CT angiogram of the chest, which noted small volume pulmonary emboli in a right lower lobe segmental branch and a right upper lobe subsegmental branch. There was also bilateral atelectasis and a left pleural effusion, and she was noted to have mild cardiomegaly. She was admitted to the hospital and anticoagulation was initiated with enoxaparin as well as warfarin. She also had adjustment of her antihypertensive medications to be appropriate for treating dilated cardiomyopathy. The patient's reports that she had echocardiograms x2 at [facility] and has an appointment with a manager search engine coming up for followup. STUDIES AND LABS IN THE HOSPITAL: She had several determinations of a basic metabolic profile. There were minor alterations, but overall renal function and electrolytes were within normal limits. She had an elevated chloride at 114 , possibly due to contraction alkalosis,on 09/02/2017. Troponin was negative. BNP was not consistent with heart failure at 280. TSH was elevated at 32.4. Free T4 and free T3 were normal. EKG showed sinus rhythm with borderline left axis deviation. PRECAUTIONS: She is a fall risk. ACTIVE COMORBIDITIES: She has no tier 1, tier 2 or tier 3 active comorbidities. PAST MEDICAL HISTORY: 1. History of hypothyroidism. She reports that she was treated for as a teenager and also much later in life, and that she may not have had optimal followup and discontinued taking thyroid medication due to adverse effects. 2. Hypertension. 3. Dilated cardiomyopathy, unclear whether this might or might not be related to her thyroid condition. 4. Fall and right humerus fracture. 5. Depression. 6. Myxedema coma. PRE-HOSPITAL MEDICATIONS: 1. Aspirin 81 mg p.o. daily. 2. Ergocalciferol 50,000 units p.o. q.7 days. 3. Famotidine 20 mg p.o. twice daily. 4. Furosemide 20 mg p.o. twice daily at 0800 and 1400. 5. Levothyroxine 125 mcg p.o. daily. 6. Lisinopril 2.5 mg p.o. daily. 7. Metoprolol 25 mg p.o. daily. 8. Mirtazapine 7.5 mg p.o. at bedtime. 9. Multivitamin daily. 10. Nystatin oral liquid 5 mL daily. 11. Potassium chloride 20 mEq p.o. daily. ADMISSION MEDICATIONS: 1. Acetaminophen 650 mg p.o. q.4 hours p.r.n. 2. Ergocalciferol 50,000 unit PO Q7D 3. Enoxaparin 70 mg subcutaneous twice daily. 4. Famotidine 20 mg p.o. twice daily. 5. Levothyroxine 125 mcg p.o. daily. 6. Lisinopril 2.5 mg PO DAILY 7. Metoprolol 25 mg p.o. daily. 8. Mirtazapine 7.5 mg p.o. at bedtime. 9. Warfarin 7.5 mg p.o. daily. ALLERGIES: There are no known drug allergies. PSYCHOSOCIAL HISTORY: She is . She lives with her . She has 3 adult children, 2 sons and 1 daughter who are all local. She is a former smoker. Her career has been in real estate. There are 3 platform steps to enter the house and no steps when she is in the house. FAMILY HISTORY: Noncontributory. REVIEW OF SYSTEMS: She is not in pain. She does not have a cough. She does not notice dyspnea currently. She has no chest pain or palpitations. She has no nausea, vomiting, constipation, diarrhea, and no dysuria. She has had some weakness, though prior to the onset of hypoxia and dyspnea, she was getting stronger at home. She sleeps well. She snores occasionally. Otherwise, a 10- point review of systems is negative. PHYSICAL EXAMINATION: VITAL SIGNS: Vitals this morning in the hospital, blood pressure was 144/84, heart rate was 72, respiratory rate was 16, oxygen saturation was 95% on 0.5 L. Temperature was 36.7 degrees centigrade. Her weight is 74 kg for a body mass index of 28.6. GENERAL: This is an overweight appearing woman, appears her chronologic age, lying in bed in street clothes, cooperative and in no acute distress. HEENT: Extraocular movements are intact. Pupils are equal, round, and reactive to light. Mucous membranes are moist. She has a moderately crowded airway, Mallampati class 3. Dentition is in good condition. NECK: Supple. HEART: There is a regular rate and rhythm with no murmurs, rubs, or gallops. LUNGS: Clear to auscultation bilaterally. ABDOMEN : Soft, nontender, nondistended with normoactive bowel sounds and no hepatosplenomegaly. EXTREMITIES: There is no cyanosis, clubbing, or edema. Radial and dorsalis pedis pulses are 2+ bilaterally. NEUROLOGIC: She is alert. She is oriented to the month and the year, but disoriented to the day of the month. Cranial nerves 2 through 12 are grossly intact. Regarding motor strength, she is weak bilaterally in the triceps and hip flexors and hamstrings , all of which are approximately 4/5. She has 4+ over 5 strength in the quadriceps bilaterally. Sensation is intact to light touch. Deep tendon reflexes are globally hypoactive. CURRENT LEVEL OF FUNCTION per the pre-admission screen. Regarding diet, feeding , and swallowing, she required setup and was otherwise independent. Grooming was accomplished with standby assist. Bathing needed assist. Dressing was accomplished with setup for the upper extremities. She needed assist for toileting. She needed minimal to moderate assist for bed mobility and for transfers using a front-wheeled walker. She had modified independence for seated balance and for standing balance. She ambulated 2 to 3 feet with minimal assist using a front-wheeled walker. Regarding cognition, she was noted to be alert and oriented x2 with some confusion. There are no significant changes on today's exam from the preadmission screen. IMPRESSION: This is a 62-year-old woman with a history of hypothyroidism and intermittent treatment who developed myxedema coma and had a prolonged hospitalization at [facility]. She eventually was ready for discharge and went home with home physical therapy. However, after several days , she developed dyspnea and hypoxemia and was sent to the emergency department from her primary care provider's office. There she was diagnosed with a pulmonary embolus and admitted. She was begun on anticoagulation with enoxaparin and warfarin. She was found to have deficits to mobility, activities of daily living as well as cognition. She was otherwise medically stabilized and ready for inpatient rehabilitation. Her goal is to complete a rehabilitation stay and then return home with her and home health care as well as any durable medical equipment that might be needed. For a safe discharge, it is expected that she will achieve standby assist to modified independence with ambulation, self-care, cognition and medication management. There will be medication education for the patient and her family, and nutritional counseling for the patient and her family. She will have Home Health Care and any other service as needed. She will have therapy with physical therapy, occupational therapy, and speech and language pathology for 60 minutes per day for each discipline on 5 to 7 days of the week. Her expected duration of stay is 12 to 14 days. It is anticipated that upon discharge she will continue to benefit from home health services including speech and language pathology, occupational therapy, and physical therapy. PLAN: 1. Hypoxemia with pulmonary emboli. Continue enoxaparin as a bridge toward warfarin therapy. Warfarin to be managed by Pharmacy. Continue oxygen as needed. 2. Deficits to mobility and activities of daily living and motor weakness. PT and OT to optimize mobility and activities of daily living toward the independent or modified independent level for discharge to home. 3. Cognitive effects. Possibly still with some delirium from myxedema coma, to be evaluated and treated per Speech and Language Pathology. 4. Hypertension. Continue lisinopril and metoprolol. 5. Dilated cardiomyopathy. Lisinopril and metoprolol are appropriate medications and she will have assessment for any signs or symptoms of heart failure with consideration to resume diuretic treatment. 6. Recent myxedema coma. We will get records from [facility]. 7. Vitamin D deficiency. It is likely that she can transition from 50,000 units once a week to daily medication, and I will prescribe this. 8. History of right humerus fracture. Given her long history of thyroid abnormalities, she may also have osteoporosis. Continue vitamin D. She should have a DEXA screen as an outpatient per primary care. 9. Prophylaxis. She already has a pulmonary embolus and she is on treatment dose of enoxaparin with transition toward warfarin. She has famotidine for GI prophylaxis. Followup. Her reports that she has followup scheduled with Cardiology at [facility]. The date of this will be determined and likely she can have this followup after her discharge from inpatient rehabilitation. /[id number]/MODL MTDD
[2017-09-03] MEDS: FAMOTIDINE 20 MG TAB PO SCH (20:16)
[2017-09-03] MEDS: ENOXAPARIN 80 MG/0.8 ML SYR SC SCH (20:17)
[2017-09-03] MEDS ORDERED: MIRTAZAPINE 15 MG TAB PO SCH (21:00)
[2017-09-04] MEDS: LEVOTHYROXINE 125 MCG TAB PO SCH (05:33)
[2017-09-04 08:18] LABS: INR 2.38 (0.83-1.16)
[2017-09-04] MEDS: METOPROLOL SUCCINATE XR 25 MG TAB PO SCH (08:22)
[2017-09-04] MEDS: LISINOPRIL 2.5 MG TAB PO SCH (08:23)
[2017-09-04] MEDS: CHOLECALCIFEROL VIT D3 2,000 UNITS TAB/CAP PO SCH (08:23)
[2017-09-04] MEDS: FAMOTIDINE 20 MG TAB PO SCH ×2 (08:23→21:56)
[2017-09-04] MEDS: ENOXAPARIN 80 MG/0.8 ML SYR SC SCH ×2 (08:23→21:56)
--- NOTE | 2017-09-04 10:51 | SOAPPROG ---
SOAP Progress Note Assessment/Plan: Assessment: * Hypoxemia with pulmonary emboli. Continue enoxaparin as a bridge toward warfarin therapy. Warfarin to be managed by Pharmacy. Continue oxygen as needed. Emphasized importance of incentive spirometry. * Deficits to mobility and activities of daily living and motor weakness. PT and OT to optimize mobility and activities of daily living toward the independent or modified independent level for discharge to home. * Cognitive effects. Possibly still with some delirium from myxedema coma, to be evaluated and treated per Speech and Language Pathology. * Hypertension. Continue lisinopril and metoprolol. Adequate control. * Dilated cardiomyopathy. Lisinopril and metoprolol are appropriate medications. Get records regarding echocardiograms and Cardiology notes from [facility]. Monitor any signs or symptoms of heart failure with consideration to resume diuretic treatment. * Recent myxedema coma. Get records from [facility]. Continue levothyroxine. Follow up with primary care after discharge. * Vitamin D deficiency. Transitioned from 50,000 units once a week to 2000 mg q.day of cholecalciferol. Follow up with primary care after discharge. * History of right humerus fracture. Given her long history of thyroid abnormalities, she may also have osteoporosis. Continue vitamin D. She should have a DEXA screen as an outpatient per primary care. * Prophylaxis. She already has a pulmonary embolus and she is on treatment dose of enoxaparin with transition toward warfarin. She has famotidine for GI prophylaxis. Followup. Her reports that she has followup scheduled with Cardiology at [facility]. She may need to establish with a new primary care provider. 09/04/17 12:47 Subjective: No complaints. No chest pain but reports some left rib pain. No cough or dyspnea. No fevers or chills. Slept well. Objective: Vital Signs Temp Pulse Resp BP Pulse Ox 36.4 C 88 16 133/92 H 95 09/04/17 05:36 09/04/17 08:22 09/04/17 05:36 09/04/17 08:22 09/04/17 05:36 09/03/17 09/04/17 09/05/17 05:59 05:59 05:59 Intake Total 200 180 Output Total 725 Balance -525 180 PT 26.0 SEC (12.0-15.0) H 09/04/17 06:00 INR 2.38 (0.83-1.16) H 09/04/17 06:00 Physical Exam - Physical Exam General Appearance: WD/WN, alert, no apparent distress Respiratory: normal breath sounds, crackles (Few fine crackles right lower lobe) , No rhonchi, No wheezing Cardiac/Chest: regular rate, rhythm, edema (Trace to 1+ bilateral pretibial), No JVD, No diastolic murmur, No systolic murmur Skin: normal color, warm/dry Neuro/Psych: no motor/sensory deficits, alert, normal mood/affect ICD10 Worksheet Patient Problems: Problems Problem Status Onset Pulmonary embolism Acute
--- NOTE | 2017-09-04 12:44 | PDOREHIP ---
Admission [facility] - Admission - 3 Day Assessment Period Admission Date/Day 1: 09/03/17 Day 2: 09/04/17 Day 3: 09/05/17 - Active Diagnoses Comorbidities and Co-existing Conditions at Admission: 89365. None of the Above - Skin Conditions Unhealed Pressure Ulcer (1 or more/Stage 1 or >)-Admission: 0. No
[2017-09-04] MEDS ORDERED: WARFARIN SODIUM 5 MG TAB PO ONE (16:00)
[2017-09-05] MEDS: LEVOTHYROXINE 125 MCG TAB PO SCH (05:15)
[2017-09-05 08:29] LABS: INR 2.81 (0.83-1.16); PROTIME(PATIENT) 29.5 SEC (12.0-15.0)
[2017-09-05] MEDS: LISINOPRIL 2.5 MG TAB PO SCH (09:26)
[2017-09-05] MEDS: CHOLECALCIFEROL VIT D3 2,000 UNITS TAB/CAP PO SCH (09:27)
[2017-09-05] MEDS: METOPROLOL SUCCINATE XR 25 MG TAB PO SCH (09:27)
[2017-09-05] MEDS: FAMOTIDINE 20 MG TAB PO SCH ×2 (09:33→21:52)
--- NOTE | 2017-09-05 09:57 | SOAPPROG ---
SOAP Progress Note Assessment/Plan: Assessment: * Hypoxemia with pulmonary emboli. Therapeutic INR x2 days so discontinued enoxaparin 09/05/2017. Continue warfarin management per pharmacy.. Continue oxygen as needed. Emphasized importance of incentive spirometry. * Deficits to mobility and activities of daily living and motor weakness. * Noted to be a fall risk. Mobility is variable; she can transfer with minimal assist or at other times her knees buckle and she needs much more assist. * Continue PT and OT to optimize mobility and activities of daily living toward the independent or modified independent level for discharge to home. * Cognitive effects. Possibly still with some delirium from myxedema coma. Brain MRI showed age-related changes and microvascular ischemic changes. * Moderate deficits to memory attention and executive function. * Continue Speech and Language Pathology. * Hypertension. Continue lisinopril and metoprolol. Adequate control. * Dilated cardiomyopathy. Lisinopril and metoprolol are appropriate medications. Reviewed records from [facility]. * She had severe cardiomegaly on a chest x-ray. * Echocardiogram showed normal LV size with low-normal systolic function with ejection fraction of 55-55% and moderate to severe hypokinesis in the mid septal and inferior segments. * She had a nuclear med perfusion scan which showed no perfusion defects. * Monitor any signs or symptoms of heart failure with consideration to resume diuretic treatment. * Recent myxedema coma. Get records from [facility]. Continue levothyroxine. Follow up with primary care after discharge. * Vitamin D deficiency. Transitioned from 50,000 units once a week to 2000 mg q.day of cholecalciferol. Follow up with primary care after discharge. * History of right humerus fracture. Given her long history of thyroid abnormalities, she may also have osteoporosis. Continue vitamin D. She should have a DEXA screen as an outpatient per primary care. * Prophylaxis. She already has a pulmonary embolus and she is on treatment dose of enoxaparin with transition toward warfarin. She has famotidine for GI prophylaxis. Followup. She is to follow up with rack cleaner Dr. Delcid. Follow-up was to be scheduled 2 weeks after discharge or approximately 09/08/2017. She may need to establish with a new primary care provider. 09/05/17 11:44 Subjective: No complaints. Slept well. Feels like she is breathing well. Still has some left chest discomfort. Objective: Vital Signs Temp Pulse Resp BP Pulse Ox 37.3 C 77 16 120/75 96 09/05/17 07:20 09/05/17 07:20 09/05/17 07:20 09/05/17 07:20 09/05/17 09:38 09/04/17 09/05/17 09/06/17 05:59 05:59 05:59 Intake Total 200 930 Output Total 725 400 400 Balance -525 530 -400 PT 29.5 SEC (12.0-15.0) H 09/05/17 05:15 INR 2.81 (0.83-1.16) H 09/05/17 05:15 Physical Exam - Physical Exam General Appearance: WD/WN, alert, no apparent distress Respiratory: normal breath sounds, No crackles, No rhonchi, No wheezing Cardiac/Chest: regular rate, rhythm, No edema, No JVD, No diastolic murmur, No systolic murmur Skin: normal color, warm/dry Neuro/Psych: no motor/sensory deficits, alert, normal mood/affect, oriented x 3 ICD10 Worksheet Patient Problems: Problems Problem Status Onset Pulmonary embolism Acute
[2017-09-05] MEDS: ENOXAPARIN 80 MG/0.8 ML SYR SC SCH (10:35)
[2017-09-05] MEDS ORDERED: WARFARIN SODIUM 5 MG TAB PO ONE (16:00)
[2017-09-06] MEDS: LEVOTHYROXINE 125 MCG TAB PO SCH (05:07)
[2017-09-06] MEDS: FAMOTIDINE 20 MG TAB PO SCH ×2 (08:48→19:42)
[2017-09-06] MEDS: CHOLECALCIFEROL VIT D3 2,000 UNITS TAB/CAP PO SCH (08:48)
[2017-09-06] MEDS: POLYETHYLENE GLYCOL 3350 17 GM PKT PO PRN (08:49)
[2017-09-06] MEDS: SENNOSIDES 1 TAB PO SCH ×2 (08:51→19:42)
[2017-09-06 09:24] LABS: INR 2.58 (0.83-1.16); PROTIME(PATIENT) 27.6 SEC (12.0-15.0)
--- NOTE | 2017-09-06 09:49 | SOAPPROG ---
SOAP Progress Note Assessment/Plan: Assessment/Plan: * Hypoxemia with pulmonary emboli. Therapeutic INR x2 days so discontinued enoxaparin 09/05/2017. Continue warfarin management per pharmacy. Continue oxygen as needed. Emphasized importance of incentive spirometry. * Deficits to mobility and activities of daily living and motor weakness. * Noted to be a fall risk. Mobility is variable; she can transfer with minimal assist or at other times her knees buckle and she needs much more assist. * Continue PT and OT to optimize mobility and activities of daily living toward the independent or modified independent level for discharge to home. * Cognitive effects. Possibly still with some delirium from myxedema coma. Brain MRI showed age-related changes and microvascular ischemic changes. * Moderate deficits to memory attention and executive function. * Continue Speech and Language Pathology. * Hypertension. Continue lisinopril and metoprolol. Adequate control. * Dilated cardiomyopathy. Lisinopril and metoprolol are appropriate medications. Reviewed records from [facility]. * She had severe cardiomegaly on a chest x-ray. * Echocardiogram showed normal LV size with low-normal systolic function with ejection fraction of 55-55% and moderate to severe hypokinesis in the mid septal and inferior segments. * She had a nuclear med perfusion scan which showed no perfusion defects. * Monitor any signs or symptoms of heart failure with consideration to resume diuretic treatment. * Recent myxedema coma. Get records from [facility]. Continue levothyroxine. Follow up with primary care after discharge. * Vitamin D deficiency. Transitioned from 50,000 units once a week to 2000 mg q.day of cholecalciferol. Follow up with primary care after discharge. * History of right humerus fracture. Given her long history of thyroid abnormalities, she may also have osteoporosis. Continue vitamin D. She should have a DEXA screen as an outpatient per primary care. * Prophylaxis. She already has a pulmonary embolus and she is on treatment dose of enoxaparin with transition toward warfarin. She has famotidine for GI prophylaxis. Followup. She is to follow up with associate professor of musicology Dr. Delcid. Follow-up was to be scheduled 2 weeks after discharge or approximately 09/08/2017. She may need to establish with a new primary care provider. Today's Plan: pt continues to do well - have encouraged ongoing use of the IC to maintain good saturations. She requires intermittent use of the O2 NC but overall is making great progress. PT/INR came back therapeutic again today and thus will continue with current management of medication 09/06/17 09:48 Subjective: Doing pretty well today - feeling like she needs to work out more to get stronger. Really enjoyed [employer] since she feels like she has lost her annuciation ability after all of these events. No new pain/SOB. Objective: Vital Signs Temp Pulse Resp BP Pulse Ox 37.1 C 72 16 130/76 H 90 L 09/06/17 05:15 09/06/17 05:15 09/06/17 05:15 09/06/17 05:15 09/06/17 05:15 09/05/17 09/06/17 09/07/17 05:59 05:59 05:59 Intake Total 930 250 Output Total 400 450 Balance 530 -200 PT 27.6 SEC (12.0-15.0) H 09/06/17 06:00 INR 2.58 (0.83-1.16) H 09/06/17 06:00 Physical Exam - Physical Exam General Appearance: alert, no apparent distress EENT: PERRL/EOMI Respiratory: lungs clear, normal breath sounds Cardiac/Chest: regular rate, rhythm Abdomen: normal bowel sounds, non-tender Extremities: other (trace LE edema ) Neuro/Psych: alert, normal mood/affect ICD10 Worksheet Patient Problems: Problems Problem Status Onset Pulmonary embolism Acute
[2017-09-06] MEDS: METOPROLOL SUCCINATE XR 25 MG TAB PO SCH (10:25)
[2017-09-06] MEDS: LISINOPRIL 2.5 MG TAB PO SCH (10:25)
[2017-09-06] MEDS ORDERED: BISACODYL 10 MG SUPP PR PRN (15:33)
[2017-09-06] MEDS ORDERED: WARFARIN SODIUM 7.5 MG TAB PO ONE (16:00)
[2017-09-07] MEDS: LEVOTHYROXINE 125 MCG TAB PO SCH (05:20)
[2017-09-07 09:33] LABS: INR 3.26 (0.83-1.16)
[2017-09-07] MEDS: CHOLECALCIFEROL VIT D3 2,000 UNITS TAB/CAP PO SCH (09:47)
[2017-09-07] MEDS: METOPROLOL SUCCINATE XR 25 MG TAB PO SCH (09:47)
[2017-09-07] MEDS: LISINOPRIL 2.5 MG TAB PO SCH (09:48)
[2017-09-07] MEDS: FAMOTIDINE 20 MG TAB PO SCH ×2 (09:48→20:51)
[2017-09-07] MEDS: SENNOSIDES 1 TAB PO SCH ×2 (09:48→20:51)
--- NOTE | 2017-09-07 10:13 | SOAPPROG ---
SOAP Progress Note Assessment/Plan: Assessment/Plan: * Hypoxemia with pulmonary emboli. Therapeutic INR x2 days so discontinued enoxaparin 09/05/2017. Continue warfarin management per pharmacy. Continue oxygen as needed. Emphasized importance of incentive spirometry. * Deficits to mobility and activities of daily living and motor weakness. * Noted to be a fall risk. Mobility is variable; she can transfer with minimal assist or at other times her knees buckle and she needs much more assist. * Continue PT and OT to optimize mobility and activities of daily living toward the independent or modified independent level for discharge to home. * Cognitive effects. Possibly still with some delirium from myxedema coma. Brain MRI showed age-related changes and microvascular ischemic changes. * Moderate deficits to memory attention and executive function. * Continue Speech and Language Pathology. * Hypertension. Continue lisinopril and metoprolol. Adequate control. * Dilated cardiomyopathy. Lisinopril and metoprolol are appropriate medications. Reviewed records from [facility]. * She had severe cardiomegaly on a chest x-ray. * Echocardiogram showed normal LV size with low-normal systolic function with ejection fraction of 55-55% and moderate to severe hypokinesis in the mid septal and inferior segments. * She had a nuclear med perfusion scan which showed no perfusion defects. * Monitor any signs or symptoms of heart failure with consideration to resume diuretic treatment. * Recent myxedema coma. Get records from [facility]. Continue levothyroxine. Follow up with primary care after discharge. * Vitamin D deficiency. Transitioned from 50,000 units once a week to 2000 mg q.day of cholecalciferol. Follow up with primary care after discharge. * History of right humerus fracture. Given her long history of thyroid abnormalities, she may also have osteoporosis. Continue vitamin D. She should have a DEXA screen as an outpatient per primary care. * Prophylaxis. She already has a pulmonary embolus and she is on treatment dose of enoxaparin with transition toward warfarin. She has famotidine for GI prophylaxis. Followup. She is to follow up with swaging machine adjuster Dr. Delcid. Follow-up was to be scheduled 2 weeks after discharge or approximately 09/08/2017. She may need to establish with a new primary care provider. Today's Plan: Continues to need around 1-2 L through the night. Might benefit from an overnight pulse Ox to determine amount of O2 needed. Having odiferous urine and feeling a little more "wobbly " getting a UA with culture - No associated fevers so unless manifest other symptoms will await return of culture prior to considering treatment. Have encouraged patient to increase fluid intake. INR slightly elevated today - will work with pharmacy about dosing/management. 09/07/17 10:11 Subjective: Doing pretty good today - did feel that rested pretty well last night. Reports that needed another 2L overnight but during the day not requiring any O2. [place] a little "wobbly" this morning but now that eating back to baseline. Objective: Vital Signs Temp Pulse Resp BP Pulse Ox 36.8 C 89 18 122/72 H 95 09/07/17 06:01 09/07/17 09:47 09/07/17 06:01 09/07/17 09:47 09/07/17 06:01 09/06/17 09/07/17 09/08/17 05:59 05:59 05:59 Intake Total 250 550 Output Total 450 300 Balance -200 250 PT 33.0 SEC (12.0-15.0) H 09/07/17 06:00 INR 3.26 (0.83-1.16) H 09/07/17 06:00 Physical Exam - Physical Exam General Appearance: alert, no apparent distress, other (Not ill appearing, Sitting up at the breakfast table eating) Respiratory: lungs clear, normal breath sounds Cardiac/Chest: regular rate, rhythm Abdomen: normal bowel sounds, non-tender Extremities: other (no LE edema) Neuro/Psych: alert, normal mood/affect ICD10 Worksheet Patient Problems: Problems Problem Status Onset Pulmonary embolism Acute
[2017-09-08] MEDS: LEVOTHYROXINE 125 MCG TAB PO SCH (05:04)
[2017-09-08 08:15] LABS: INR 2.68 (0.83-1.16); PROTIME(PATIENT) 28.4 SEC (12.0-15.0)
[2017-09-08] MEDS: FAMOTIDINE 20 MG TAB PO SCH ×2 (08:22→20:25)
[2017-09-08] MEDS: METOPROLOL SUCCINATE XR 25 MG TAB PO SCH (08:22)
[2017-09-08] MEDS: LISINOPRIL 2.5 MG TAB PO SCH (08:22)
[2017-09-08] MEDS: CHOLECALCIFEROL VIT D3 2,000 UNITS TAB/CAP PO SCH (08:22)
[2017-09-08] MEDS: SENNOSIDES 1 TAB PO SCH ×2 (08:23→20:27)
--- NOTE | 2017-09-08 13:51 | SOAPPROG ---
SOAP Progress Note Assessment/Plan: Assessment: * Hypoxemia with pulmonary emboli. Therapeutic INR x2 days so discontinued enoxaparin 09/05/2017. Continue warfarin management per pharmacy.. Continue oxygen as needed. * Emphasized importance of incentive spirometry. * Overnight oximetry study tonight 09/08/2017, regarding risk for obstructive sleep apnea. * Deficits to mobility and activities of daily living and motor weakness. * Initial functional independence measure 61 on 09/08/2017. Standby assist for bed mobility. Transfers required contact assist with front wheeled walker and cuing to sequence. Ambulated 15 ft with a front wheeled walker contact guard to minimal assist, slowly. Noted to be distractible. Has global weakness. Grooming and hygiene is done seated with standby assist. Upper body dressing requires setup and standby assist, lower body dressing requires contact guard assist for balance. 2 person shower transfer; bathes with standby assist. * Continue PT and OT to optimize mobility and activities of daily living toward the independent or modified independent level for discharge to home. * Cognitive effects. Possibly still with some delirium from myxedema coma. Brain MRI showed age-related changes and microvascular ischemic changes. * Very dysexecutive. Deficits to memory, new learning, problem solving and attention. * Continue Speech and Language Pathology. * Cognitive recovery from myxedema coma can take weeks to months and may be incomplete. * Hypertension. Continue lisinopril and metoprolol. Adequate control. * Dilated cardiomyopathy. Lisinopril and metoprolol are appropriate medications. Reviewed records from [facility]. * She had severe cardiomegaly on a chest x-ray. * Echocardiogram showed normal LV size with low-normal systolic function with ejection fraction of 55-55% and moderate to severe hypokinesis in the mid septal and inferior segments. * She had a nuclear perfusion scan which showed no perfusion defects. * Monitor any signs or symptoms of heart failure with consideration to resume diuretic treatment. * Recent myxedema coma. Continue levothyroxine. Follow up with primary care after discharge. * Vitamin D deficiency. Transitioned from 50,000 units once a week to 2000 mg q.day of cholecalciferol. Follow up with primary care after discharge. * History of right humerus fracture. Given her long history of thyroid abnormalities, she may also have osteoporosis. Continue vitamin D. She should have a DEXA screen as an outpatient per primary care. * Prophylaxis. She already has a pulmonary embolus and she is on treatment dose of enoxaparin with transition toward warfarin. She has famotidine for GI prophylaxis. Attended staffing, 15 min. Discussed with case management, dietitian, nursing, PT, OT, PRODUCT DESIGNER. Plans to return home with . Set tentative discharge date of 09/18/2017. Followup. She is to follow up with entry level manager Dr. Delcid. Follow-up was to be scheduled 2 weeks after discharge or approximately 09/08/2017. She may need to establish with a new primary care provider. 09/08/17 13:44 Subjective: No complaints. Feels that she slept well last night. Not in pain. No cough or dyspnea, no fevers or chills. Objective: Vital Signs Temp Pulse Resp BP Pulse Ox 36.9 C 84 16 112/78 92 09/08/17 05:06 09/08/17 08:22 09/08/17 05:05 09/08/17 08:22 09/07/17 23:06 09/07/17 09/08/17 09/09/17 05:59 05:59 05:59 Intake Total 550 650 325 Output Total 300 550 Balance 250 100 325 PT 28.4 SEC (12.0-15.0) H 09/08/17 06:00 INR 2.68 (0.83-1.16) H 09/08/17 06:00 - Time Spent With Patient Time Spent With Patient: Greater than 35 min floor time today, including more than 50% of time in coordination of care during staffing meeting, and counseling patient and family. Physical Exam - Physical Exam General Appearance: WD/WN, alert, no apparent distress Respiratory: normal breath sounds, No crackles, No rhonchi, No wheezing Cardiac/Chest: regular rate, rhythm, No edema, No diastolic murmur, No systolic murmur Skin: normal color, warm/dry Neuro/Psych: alert, normal mood/affect ICD10 Worksheet Patient Problems: Problems Problem Status Onset Pulmonary embolism Acute
[2017-09-08] MEDS ORDERED: WARFARIN SODIUM 5 MG TAB PO ONE (16:00)
[2017-09-08] MEDS: NYSTATIN POWDER 15 GM BTL TP SCH ×2 (16:37→20:29)
[2017-09-09] MEDS: LEVOTHYROXINE 125 MCG TAB PO SCH (05:47)
[2017-09-09] MEDS: FAMOTIDINE 20 MG TAB PO SCH ×2 (07:36→21:00)
[2017-09-09] MEDS: CHOLECALCIFEROL VIT D3 2,000 UNITS TAB/CAP PO SCH (07:37)
[2017-09-09] MEDS: LISINOPRIL 2.5 MG TAB PO SCH (07:39)
[2017-09-09] MEDS: SENNOSIDES 1 TAB PO SCH ×2 (07:39→21:01)
[2017-09-09] MEDS: METOPROLOL SUCCINATE XR 25 MG TAB PO SCH (07:40)
[2017-09-09] MEDS: NYSTATIN POWDER 15 GM BTL TP SCH ×3 (07:43→21:01)
[2017-09-09 08:07] LABS: INR 2.72 (0.83-1.16); PROTIME(PATIENT) 28.8 SEC (12.0-15.0)
[2017-09-09] MEDS ORDERED: WARFARIN SODIUM 5 MG TAB PO ONE (16:00)
[2017-09-10] MEDS: LEVOTHYROXINE 125 MCG TAB PO SCH (05:32)
[2017-09-10] MEDS: CHOLECALCIFEROL VIT D3 2,000 UNITS TAB/CAP PO SCH (08:23)
[2017-09-10] MEDS: LISINOPRIL 2.5 MG TAB PO SCH (08:23)
[2017-09-10] MEDS: FAMOTIDINE 20 MG TAB PO SCH ×2 (08:23→21:20)
[2017-09-10] MEDS: METOPROLOL SUCCINATE XR 25 MG TAB PO SCH (08:24)
[2017-09-10] MEDS: SENNOSIDES 1 TAB PO SCH ×2 (08:25→21:20)
[2017-09-10 08:33] LABS: INR 3.12 (0.83-1.16); PROTIME(PATIENT) 31.9 SEC (12.0-15.0)
[2017-09-10] MEDS: NYSTATIN POWDER 15 GM BTL TP SCH ×3 (09:50→21:21)
[2017-09-10] MEDS: POLYETHYLENE GLYCOL 3350 17 GM PKT PO PRN (09:57)
--- NOTE | 2017-09-10 14:28 | SOAPPROG ---
SOAP Progress Note Assessment/Plan: Assessment: * Hypoxemia with pulmonary emboli. Therapeutic INR x2 days so discontinued enoxaparin 09/05/2017. Continue warfarin management per pharmacy.. Continue oxygen as needed. * Continue incentive spirometry. * Deficits to mobility and activities of daily living and motor weakness. * Initial functional independence measure 61 on 09/08/2017. Standby assist for bed mobility. Transfers required contact assist with front wheeled walker and cuing to sequence. Ambulated 15 ft with a front wheeled walker contact guard to minimal assist, slowly. Noted to be distractible. Has global weakness. Grooming and hygiene is done seated with standby assist. Upper body dressing requires setup and standby assist, lower body dressing requires contact guard assist for balance. 2 person shower transfer; bathes with standby assist. * Continue PT and OT to optimize mobility and activities of daily living toward the independent or modified independent level for discharge to home. * Cognitive effects. Possibly still with some delirium from myxedema coma. Brain MRI showed age-related changes and microvascular ischemic changes. * Very dysexecutive. Deficits to memory, new learning, problem solving and attention. * Continue Speech and Language Pathology. * Cognitive recovery from myxedema coma can take weeks to months and may be incomplete. * Hypertension. Continue lisinopril and metoprolol. Adequate control. * Dizziness. +/- consistent with BPPV. Check orthostatics in AM. * Dilated cardiomyopathy. Lisinopril and metoprolol are appropriate medications. Reviewed records from [facility]. * She had severe cardiomegaly on a chest x-ray. * Echocardiogram showed normal LV size with low-normal systolic function with ejection fraction of 55-55% and moderate to severe hypokinesis in the mid septal and inferior segments. * She had a nuclear perfusion scan which showed no perfusion defects. * Monitor any signs or symptoms of heart failure with consideration to resume diuretic treatment. * Recent myxedema coma. Continue levothyroxine. Follow up with primary care after discharge. * Vitamin D deficiency. Transitioned from 50,000 units once a week to 2000 mg q.day of cholecalciferol. Follow up with primary care after discharge. * History of right humerus fracture. Given her long history of thyroid abnormalities, she may also have osteoporosis. Continue vitamin D. She should have a DEXA screen as an outpatient per primary care. * Prophylaxis. She already has a pulmonary embolus and she is on treatment dose of enoxaparin with transition toward warfarin. She has famotidine for GI prophylaxis. Plans to return home with . Tentative discharge date is 09/18/2017. Followup. She is to follow up with scheduling manager Dr. Delcid. Follow-up was to be scheduled 2 weeks after discharge or approximately 09/08/2017. She may need to establish with a new primary care provider. 09/10/17 14:24 Subjective: Reports feeling dizzy when she 1st gets up in the morning. She thinks there is a component of spinning but she is not sure that specifically positional. She says it has been going on for years. Otherwise without complaints. No cough or dyspnea, no fevers or chills. No dysuria. Objective: Vital Signs Temp Pulse Resp BP Pulse Ox 36.7 C 88 16 121/82 H 94 09/10/17 07:19 09/10/17 13:59 09/10/17 07:19 09/10/17 13:59 09/10/17 07:19 Microbiology 09/07/17 13:40 Urine Culture - Final Urine,Clean Catch Escherichia Coli One [place] Type 09/09/17 09/10/17 09/11/17 05:59 05:59 05:59 Intake Total 725 1220 510 Output Total 500 1250 Balance 225 -30 510 PT 31.9 SEC (12.0-15.0) H 09/10/17 06:00 INR 3.12 (0.83-1.16) H 09/10/17 06:00 Physical Exam - Physical Exam General Appearance: WD/WN, alert, no apparent distress Respiratory: normal breath sounds, No crackles, No rhonchi, No wheezing Cardiac/Chest: regular rate, rhythm, No edema, No diastolic murmur, No systolic murmur Skin: normal color, warm/dry Neuro/Psych: alert, normal mood/affect, oriented x 3, No motor weakness ICD10 Worksheet Patient Problems: Problems Problem Status Onset Pulmonary embolism Acute
[2017-09-10] MEDS ORDERED: WARFARIN SODIUM 2.5 MG TAB PO ONE (16:00)
[2017-09-11] MEDS: LEVOTHYROXINE 125 MCG TAB PO SCH (05:55)
[2017-09-11 08:21] LABS: INR 3.23 (0.83-1.16); PROTIME(PATIENT) 32.8 SEC (12.0-15.0)
--- NOTE | 2017-09-11 08:58 | SOAPPROG ---
SOAP Progress Note Assessment/Plan: 62 yo F with PE following myxedema coma, complicated by delirium. Today's update: INR is 3.12, no bleeding. Working with pharmacy on dosing. Appreciate assistance. Denies any symptoms of delirium, dizziness symptoms are most consistent with vertigo and likely benign paroxysmal positional vertigo. Encouraged her to work with therapy on the Marilin maneuver. Weights have been relatively stable but she does have lower extremity edema, restarting furosemide. All medical issues are new to this provider. * Hypoxemia with pulmonary emboli. Therapeutic INR x2 days so discontinued enoxaparin 09/05/2017. Continue warfarin management per pharmacy.. Continue oxygen as needed. * Continue incentive spirometry. * Deficits to mobility and activities of daily living and motor weakness. * Initial functional independence measure 61 on 09/08/2017. Standby assist for bed mobility. Transfers required contact assist with front wheeled walker and cuing to sequence. Ambulated 15 ft with a front wheeled walker contact guard to minimal assist, slowly. Noted to be distractible. Has global weakness. Grooming and hygiene is done seated with standby assist. Upper body dressing requires setup and standby assist, lower body dressing requires contact guard assist for balance. 2 person shower transfer; bathes with standby assist. * Continue PT and OT to optimize mobility and activities of daily living toward the independent or modified independent level for discharge to home. * Cognitive effects. Possibly still with some delirium from myxedema coma. Brain MRI showed age-related changes and microvascular ischemic changes. * Very dysexecutive. Deficits to memory, new learning, problem solving and attention. * Continue Speech and Language Pathology. * Cognitive recovery from myxedema coma can take weeks to months and may be incomplete. * Hypertension. Continue lisinopril and metoprolol. Adequate control. * Dizziness. +/- consistent with BPPV. orthostatics negative. * Work with therapies on Marilin maneuver * Dilated cardiomyopathy. Lisinopril and metoprolol are appropriate medications. Reviewed records from [facility]. * She had severe cardiomegaly on a chest x-ray. * Echocardiogram showed normal LV size with low-normal systolic function with ejection fraction of 55-55% and moderate to severe hypokinesis in the mid septal and inferior segments. * She had a nuclear perfusion scan which showed no perfusion defects. * Restart furosemide 20 mg bid at 9 and 1500, home dose * Recent myxedema coma. Continue levothyroxine. Follow up with primary care after discharge. * Vitamin D deficiency. Transitioned from 50,000 units once a week to 2000 mg q.day of cholecalciferol. Follow up with primary care after discharge. * History of right humerus fracture. Given her long history of thyroid abnormalities, she may also have osteoporosis. Continue vitamin D. She should have a DEXA screen as an outpatient per primary care. * Prophylaxis. She already has a pulmonary embolus and she is on warfarin. She has famotidine for GI prophylaxis. * DVT Warfarin with goal INR of 2-3 Plans to return home with . Tentative discharge date is 09/18/2017. Followup. She is to follow up with watch repairer Dr. Delcid. Follow-up was to be scheduled 2 weeks after discharge or approximately 09/08/2017. She may need to establish with a new primary care provider. 09/11/17 08:33 Subjective: Chief complaint: Cold night before No acute events overnight. She endorses that it was cold in her room, it appears he may be was not on. Denies any new shortness of breath or chest pain , no new numbness, tingling, or weakness. Her weight has been stable but possibly slightly up, highly variable. She endorses worse edema in her lower extremities the last couple days. Denies any orthostasis, orthostatics were negative. She endorses ongoing vertigo associated with rapid head movements and rolling over in bed. Denies any nightmares or hallucinations, no confusion. Objective: Vital Signs Temp Pulse Resp BP Pulse Ox 36.7 C 67 16 120/68 96 09/11/17 06:15 09/11/17 06:15 09/11/17 06:15 09/11/17 06:15 09/11/17 06:15 09/10/17 09/11/17 09/12/17 05:59 05:59 05:59 Intake Total 1220 760 Output Total 1250 300 Balance -30 460 PT 32.8 SEC (12.0-15.0) H 09/11/17 06:10 INR 3.23 (0.83-1.16) H 09/11/17 06:10 Physical Exam - Physical Exam General Appearance: WD/WN, alert, no apparent distress EENT: No scleral icterus (R), No scleral icterus (L) Respiratory: No respiratory distress, No accessory muscle use Cardiac/Chest: normal peripheral pulses, regular rate, rhythm, edema (2+ bilateral lower extremity) Skin: normal color, warm/dry, No cyanosis, No diaphoresis Extremities: non-tender, pedal edema, swelling, No calf tenderness Neuro/Psych: alert, normal mood/affect, oriented x 3 ICD10 Worksheet Patient Problems: Problems Problem Status Onset Pulmonary embolism Acute
[2017-09-11] MEDS: CHOLECALCIFEROL VIT D3 2,000 UNITS TAB/CAP PO SCH (09:24)
[2017-09-11] MEDS: FAMOTIDINE 20 MG TAB PO SCH ×2 (09:24→21:18)
[2017-09-11] MEDS: LISINOPRIL 2.5 MG TAB PO SCH (09:25)
[2017-09-11] MEDS: METOPROLOL SUCCINATE XR 25 MG TAB PO SCH (09:26)
[2017-09-11] MEDS: NYSTATIN POWDER 15 GM BTL TP SCH ×3 (09:26→21:17)
[2017-09-11] MEDS: SENNOSIDES 1 TAB PO SCH ×2 (09:27→21:18)
[2017-09-11] MEDS: FUROSEMIDE 20 MG TAB PO SCH ×2 (09:38→16:40)
[2017-09-12] MEDS: LEVOTHYROXINE 125 MCG TAB PO SCH (05:35)
[2017-09-12 08:10] LABS: INR 2.54 (0.83-1.16); PROTIME(PATIENT) 27.3 SEC (12.0-15.0)
[2017-09-12] MEDS: METOPROLOL SUCCINATE XR 25 MG TAB PO SCH (08:18)
[2017-09-12] MEDS: LISINOPRIL 2.5 MG TAB PO SCH (08:19)
[2017-09-12] MEDS: FAMOTIDINE 20 MG TAB PO SCH ×2 (08:19→20:21)
[2017-09-12] MEDS: FUROSEMIDE 20 MG TAB PO SCH (08:19)
[2017-09-12] MEDS: CHOLECALCIFEROL VIT D3 2,000 UNITS TAB/CAP PO SCH (08:20)
[2017-09-12] MEDS: SENNOSIDES 1 TAB PO SCH ×2 (08:20→20:25)
[2017-09-12] MEDS: NYSTATIN POWDER 15 GM BTL TP SCH ×3 (08:20→20:25)
--- NOTE | 2017-09-12 12:57 | SOAPPROG ---
SOAP Progress Note Assessment/Plan: Assessment: * Hypoxemia with pulmonary emboli. Therapeutic INR x2 days so discontinued enoxaparin 09/05/2017. Continue warfarin management per pharmacy. Continue oxygen as needed. * Continue incentive spirometry. * Overnight oximetry showed desaturation even on 2 L of oxygen. She would have full sleep study after discharge to rule out obstructive sleep apnea. * Deficits to mobility and activities of daily living and motor weakness. * Initial functional independence measure 61 on 09/08/2017. Standby assist for bed mobility. Transfers required contact assist with front wheeled walker and cuing to sequence. Ambulated 15 ft with a front wheeled walker contact guard to minimal assist, slowly. Noted to be distractible. Has global weakness. Grooming and hygiene is done seated with standby assist. Upper body dressing requires setup and standby assist, lower body dressing requires contact guard assist for balance. 2 person shower transfer; bathes with standby assist. * Continue PT and OT to optimize mobility and activities of daily living toward the independent or modified independent level for discharge to home. * Cognitive effects. Possibly still with some delirium from myxedema coma. Brain MRI showed age-related changes and microvascular ischemic changes. * Very dysexecutive. Deficits to memory, new learning, problem solving and attention. * Has preserved social interaction. * Continue Speech and Language Pathology. * Cognitive recovery from myxedema coma can take weeks to months and may be incomplete. * Hypertension. Continue lisinopril and metoprolol. Adequate control. * Dizziness. +/- consistent with BPPV. Not orthostatic. * Dilated cardiomyopathy. Lisinopril and metoprolol are appropriate medications. Reviewed records from [facility]. * She had severe cardiomegaly on a chest x-ray. * Echocardiogram showed normal LV size with low-normal systolic function with ejection fraction of 55-55% and moderate to severe hypokinesis in the mid septal and inferior segments. * She had a nuclear perfusion scan which showed no perfusion defects. * Monitor any signs or symptoms of heart failure with consideration to resume diuretic treatment. * Recent myxedema coma. Continue levothyroxine. Follow up with primary care after discharge. * Vitamin D deficiency. Transitioned from 50,000 units once a week to 2000 mg q.day of cholecalciferol. Follow up with primary care after discharge. * History of right humerus fracture. Given her long history of thyroid abnormalities, she may also have osteoporosis. Continue vitamin D. She should have a DEXA screen as an outpatient per primary care. * Prophylaxis. She already has a pulmonary embolus and she is on treatment dose of enoxaparin with transition toward warfarin. She has famotidine for GI prophylaxis. Plans to return home with . Tentative discharge date is 09/18/2017. Followup. She is to follow up with pressroom worker Dr. Saba at [facility]. She may need to establish with a new primary care provider. 09/12/17 12:51 Subjective: No complaints. She thinks she had increased swelling in her legs because she had prolonged. Of time sitting upright yesterday. She denies cough or dyspnea. She thinks her swelling has gone down. Objective: Vital Signs Temp Pulse Resp BP Pulse Ox 36.6 C 90 17 122/80 H 94 09/12/17 08:00 09/12/17 08:00 09/11/17 19:54 09/12/17 08:00 09/12/17 08:00 09/11/17 09/12/17 09/13/17 05:59 05:59 05:59 Intake Total 760 670 250 Output Total 300 950 600 Balance 460 -280 -350 PT 27.3 SEC (12.0-15.0) H 09/12/17 06:00 INR 2.54 (0.83-1.16) H 09/12/17 06:00 Physical Exam - Physical Exam General Appearance: WD/WN, alert, no apparent distress Respiratory: normal breath sounds, No crackles, No rhonchi, No wheezing Cardiac/Chest: regular rate, rhythm, edema (Trace to 1+ bilateral pretibial), JVD (1 cm above clavicle), No diastolic murmur, No systolic murmur Skin: normal color, warm/dry Neuro/Psych: alert, normal mood/affect ICD10 Worksheet Patient Problems: Problems Problem Status Onset Pulmonary embolism Acute
[2017-09-12] MEDS ORDERED: WARFARIN SODIUM 5 MG TAB PO ONE (16:00)
[2017-09-13] MEDS: LEVOTHYROXINE 125 MCG TAB PO SCH (05:39)
[2017-09-13] MEDS: CHOLECALCIFEROL VIT D3 2,000 UNITS TAB/CAP PO SCH (08:30)
[2017-09-13] MEDS: FAMOTIDINE 20 MG TAB PO SCH ×2 (08:30→20:17)
[2017-09-13] MEDS: SENNOSIDES 1 TAB PO SCH ×3 (08:30→20:22)
[2017-09-13] MEDS: LISINOPRIL 2.5 MG TAB PO SCH (08:31)
[2017-09-13] MEDS: FUROSEMIDE 20 MG TAB PO SCH (08:31)
[2017-09-13] MEDS: METOPROLOL SUCCINATE XR 25 MG TAB PO SCH (08:31)
[2017-09-13 09:40] LABS: INR 2.15 (0.83-1.16)
[2017-09-13] MEDS: NYSTATIN POWDER 15 GM BTL TP SCH ×3 (10:15→20:22)
--- NOTE | 2017-09-13 12:38 | HOSPPROG ---
Hospitalist Progress Note Assessment/Plan: Assessment: 62 yo F p/w acute on chronic weakness 2/2 combination of myxedema coma, acute pulmonary embolism, and acute systolic CHF Plan: # Weakness. 2/2 combination of medical issues below as well as deconditioning during hospitalization (x2) to treat the issues - ongoing bilat knee weakness, working w/ PT/OT # Chronic systolic CHF. No e/o current exacerbation, EF 50-55% w/ focal wall motion abnl but neg nuc stress, suspect this is non-ischemic 2/2 untreated hypothyroidism resulting in dilated cardiomyopathy, appears euvolemic w/ weight net even LOS - cont ACEi/bblocker/diuretic at current doses - repeat BMP on 09/15 # Severe hypothyroidism w/ myxedema coma. 2/2 med non-adherence, s/p resumption of synthroid - cont levothyroxine # Pulmonary Embolism. Recent acute diagnosis, requires ongoing systemic anticoagulation, currently sat'ing well on room air - cont coumadin 5mg daily, INR 2.1, repeat on 09/15 # Vitamin D deficiency. Currently on 2000u, DEXA as outpt Diet. Cardiac PPx. High risk, on coumadin Code. Full Dispo. Ongoing therapy reassessments, 09/18 DC anticipated Subjective: patient reports ongoing bilat knee weakness Objective: Vital Signs Temp Pulse Resp BP Pulse Ox 36.9 C 104 H 14 113/88 H 93 09/13/17 08:00 09/13/17 08:00 09/13/17 08:00 09/13/17 08:00 09/13/17 08:00 09/12/17 09/13/17 09/14/17 05:59 05:59 05:59 Intake Total 670 1000 600 Output Total 950 875 Balance -280 125 600 PT 24.0 SEC (12.0-15.0) H 09/13/17 06:00 INR 2.15 (0.83-1.16) H 09/13/17 06:00 - Physical Exam Constitutional: no apparent distress, appears nourished, not in pain, No uncomfortable Cardiovascular: regular rate and rhythym, no murmur, rub, or gallop, No edema Respiratory: no respiratory distress, no rales or rhonchi, clear to auscultation Gastrointestinal: normoactive bowel sounds, soft, non-tender abdomen, no palpable masses Neurologic: AAOx3, sensation intact bilaterally, No weakness (motor 5/5 bilat UE /LE) Psychiatric: interacting appropriately, not anxious, thought process linear, poor memory ICD10 Worksheet Patient Problems: Problems Problem Status Onset Pulmonary embolism Acute
[2017-09-13] MEDS ORDERED: WARFARIN SODIUM 5 MG TAB PO ONE (16:00)
[2017-09-14] MEDS: LEVOTHYROXINE 125 MCG TAB PO SCH (06:16)
[2017-09-14] MEDS: SENNOSIDES 1 TAB PO SCH ×2 (08:19→20:03)
[2017-09-14] MEDS: CHOLECALCIFEROL VIT D3 2,000 UNITS TAB/CAP PO SCH (08:20)
[2017-09-14] MEDS: FUROSEMIDE 20 MG TAB PO SCH (08:20)
[2017-09-14] MEDS: LISINOPRIL 2.5 MG TAB PO SCH (08:20)
[2017-09-14] MEDS: METOPROLOL SUCCINATE XR 25 MG TAB PO SCH (08:20)
[2017-09-14] MEDS: FAMOTIDINE 20 MG TAB PO SCH ×2 (08:20→20:03)
[2017-09-14] MEDS: NYSTATIN POWDER 15 GM BTL TP SCH ×3 (11:19→22:03)
--- NOTE | 2017-09-14 12:18 | HOSPPROG ---
Hospitalist Progress Note Assessment/Plan: Assessment: 62 yo F p/w acute on chronic weakness 2/2 combination of myxedema coma, acute pulmonary embolism, and acute systolic CHF Plan: # Weakness. 2/2 combination of medical issues below as well as deconditioning during hospitalization (x2) to treat the issues - ongoing bilat knee weakness, working w/ PT/OT - patient feels very emotionally stressed by the slow recovery, her relatives' challenges understanding how difficult this is for her and the severity of illness, and the seemingly preventable nature of the situation of the under/ untreated hypothyroidism which resulted in her current situation - counseled patient regarding the anticipated duration of medical and physical recovery, encouraged her that the medical situation is stabilized and is completely treatable, and encouraged her to continue her strong work w/ therapy modalities # Chronic systolic CHF. No e/o current exacerbation, EF 50-55% w/ focal wall motion abnl but neg nuc stress, suspect this is non-ischemic 2/2 untreated hypothyroidism resulting in dilated cardiomyopathy, appears euvolemic w/ weight neg 1kg LOS - cont ACEi/bblocker/diuretic at current doses - repeat BMP on 09/15 - recommend that she establish w/ outpatient Cards after DC # Severe hypothyroidism w/ myxedema coma. 2/2 med non-adherence, s/p resumption of synthroid - cont levothyroxine - recommend that she establish w/ outpatient substation engineer after DC # Pulmonary Embolism. Recent acute diagnosis, requires ongoing systemic anticoagulation, currently sat'ing well on room air - cont coumadin 5mg daily, repeat INR on 09/15 # Vitamin D deficiency. Currently on 2000u, DEXA as outpt # Dermatitis. Likely fungal, under breasts/dependent area, cont nystatin Diet. Cardiac PPx. High risk, on coumadin Code. Full Dispo. Ongoing therapy reassessments, 09/18 DC anticipated Subjective: patient w/ angst regarding her current situation, frustrated that she does not have complete control over her recovery Objective: Vital Signs Temp Pulse Resp BP Pulse Ox 36.6 C 95 15 123/83 H 95 09/14/17 06:32 09/14/17 08:00 09/14/17 06:32 09/14/17 08:00 09/14/17 06:32 09/13/17 09/14/17 09/15/17 05:59 05:59 05:59 Intake Total 1000 1600 400 Output Total 875 225 Balance 125 1375 400 PT 24.0 SEC (12.0-15.0) H 09/13/17 06:00 INR 2.15 (0.83-1.16) H 09/13/17 06:00 - Time Spent With Patient Time Spent with Patient: greater than 35 minutes Time Spent with Patient: Greater than 35 minutes spent on this patients care, greater than 50% of time spent counseling, educating, and coordinating care regarding the above mentioned plan. - Physical Exam Constitutional: appears nourished, not in pain, No uncomfortable Cardiovascular: regular rate and rhythym, no murmur, rub, or gallop, No edema Respiratory: no respiratory distress, no rales or rhonchi, clear to auscultation Gastrointestinal: normoactive bowel sounds, soft, non-tender abdomen, no palpable masses Neurologic: AAOx3 Psychiatric: not encephalopathic, thought process linear, other (frustrated), No anxious, No agitated ICD10 Worksheet Patient Problems: Problems Problem Status Onset Pulmonary embolism Acute
[2017-09-14] MEDS ORDERED: WARFARIN SODIUM 5 MG TAB PO ONE (16:00)
[2017-09-15] MEDS: LEVOTHYROXINE 125 MCG TAB PO SCH (05:54)
[2017-09-15] MEDS: NYSTATIN POWDER 15 GM BTL TP SCH ×3 (08:00→20:38)
[2017-09-15 08:35] LABS: INR 2.94 (0.83-1.16); PROTIME(PATIENT) 30.5 SEC (12.0-15.0)
[2017-09-15] MEDS: FUROSEMIDE 20 MG TAB PO SCH (08:48)
[2017-09-15] MEDS: CHOLECALCIFEROL VIT D3 2,000 UNITS TAB/CAP PO SCH (08:48)
[2017-09-15] MEDS: SENNOSIDES 1 TAB PO SCH ×2 (08:48→20:36)
[2017-09-15] MEDS: FAMOTIDINE 20 MG TAB PO SCH ×2 (08:48→20:35)
[2017-09-15] MEDS: METOPROLOL SUCCINATE XR 25 MG TAB PO SCH (08:49)
[2017-09-15] MEDS: LISINOPRIL 2.5 MG TAB PO SCH (08:49)
[2017-09-15] MEDS ORDERED: POTASSIUM CL 20 MEQ TAB PO ONE (09:04)
[2017-09-15] MEDS ORDERED: FUROSEMIDE 20 MG TAB PO PRN (09:06)
--- NOTE | 2017-09-15 15:02 | SOAPPROG ---
SOAP Progress Note Assessment/Plan: Assessment: * Hypoxemia with pulmonary emboli. Continue warfarin management per pharmacy. Continue oxygen as needed. * Continue incentive spirometry. * Overnight oximetry showed desaturation even on 2 L of oxygen. She should have full sleep study after discharge to rule out obstructive sleep apnea. * Deficits to mobility and activities of daily living and motor weakness. * Initial functional independence measure 61 on 09/08/2017, improved to 77 as of 09/15/2017. Standby assist for bed mobility. Transfers contact guard assist and multiple cues using front wheeled walker. Her knees buckle and predictably. She has ambulated up to 60 ft with a front wheeled walker. Upper body dressing standby assist, lower body dressing close standby assist to contact guard assist, needing multiple cues. * Continue PT and OT to optimize mobility and activities of daily living toward the independent or modified independent level for discharge to home. * Cognitive effects. May still have some delirium from myxedema coma. Brain MRI showed age-related changes and microvascular ischemic changes. * Very dysexecutive. Deficits to memory, new learning, problem solving and attention. No improvement noted over past week, as of 09/15/2017. * Has preserved social interaction. * Continue Speech and Language Pathology. * Cognitive recovery from myxedema coma can take weeks to months and may be incomplete. * Hypertension. Continue lisinopril and metoprolol. Adequate control. * Dizziness. Not orthostatic. Per therapy staff, unlikely to be vestibular. * Dilated cardiomyopathy. Lisinopril and metoprolol are appropriate medications. Reviewed records from [facility]. * She had severe cardiomegaly on a chest x-ray. * Echocardiogram showed normal LV size with low-normal systolic function with ejection fraction of 55-55% and moderate to severe hypokinesis in the mid septal and inferior segments. * She had a nuclear perfusion scan which showed no perfusion defects. * Has been on furosemide 20 mg q.day [id number]. Slightly low potassium and tachycardia this morning, 09/15/2017. Repleted potassium with single dose 20 mEq today. Weight is down considerably but still with JVD and edema. Will decrease Lasix dose from 20 mg to 10 mg p.o. Q.day. Had potassium chloride 10 mEq q.day. * Abdominal nodule. Unclear etiology. Nontender. Wonder if she may have had extravasation of blood followed by clotting from on abdominal injection of enoxaparin. She can follow up as an outpatient. Consider ultrasound. * Recent myxedema coma. Continue levothyroxine. Follow up with primary care after discharge. * Vitamin D deficiency. Transitioned from 50,000 units once a week to 2000 mg q.day of cholecalciferol. Follow up with primary care after discharge. * History of right humerus fracture. Given her long history of thyroid abnormalities, she may also have osteoporosis. Continue vitamin D. She should have a DEXA screen as an outpatient per primary care. * Prophylaxis. She already has a pulmonary embolus and she is on treatment dose of enoxaparin with transition toward warfarin. She has famotidine for GI prophylaxis. Attended staffing, 15 min. Discussed with case management, dietitian, nursing, PT, OT, PIPE LINE REPAIRER. Needing 24 hr assistance largely due to cognitive issues. [place] of care is likely too great to return home with . Family conference planned for tomorrow, 09/16/2017. Tentative discharge date of 09/23 to 2017. Followup. She is to follow up with audit clerks supervisor Dr. Saba at [facility]. She may need to establish with a new primary care provider. 09/15/17 15:02 Subjective: No complaints. Reports that she slept well the points out that she has had poor sleep. Then she reports that she slept better last night after the turned the heat up. She has noticed a mass in her right lower quadrant. Objective: Vital Signs Temp Pulse Resp BP Pulse Ox 37.0 C 78 16 117/79 95 09/15/17 06:12 09/15/17 13:13 09/15/17 06:12 09/15/17 13:13 09/15/17 13:13 Laboratory Results 09/15/17 06:02 09/14/17 09/15/17 09/16/17 05:59 05:59 05:59 Intake Total 1600 1150 240 Output Total 225 800 200 Balance 1375 350 40 PT 30.5 SEC (12.0-15.0) H 09/15/17 06:02 INR 2.94 (0.83-1.16) H 09/15/17 06:02 - Time Spent With Patient Time Spent With Patient: Greater than 35 min floor time today, including more than 50% of time in coordination of care during staffing meeting, and counseling patient and . Physical Exam - Physical Exam General Appearance: WD/WN, alert, no apparent distress Respiratory: normal breath sounds, No crackles, No rhonchi, No wheezing Cardiac/Chest: regular rate, rhythm, edema, JVD (3 cm above clavicle), No diastolic murmur, No systolic murmur Abdomen: normal bowel sounds, non-tender, soft, other (Firm nontender nodule right lower quadrant approximately 2 x 4 cm with irregular surface in subcutaneous fat.), No distended ICD10 Worksheet Patient Problems: Problems Problem Status Onset Pulmonary embolism Acute
[2017-09-15] MEDS ORDERED: WARFARIN SODIUM 2.5 MG TAB PO ONE (16:00)
[2017-09-16] MEDS: LEVOTHYROXINE 125 MCG TAB PO SCH (06:00)
[2017-09-16] MEDS: FAMOTIDINE 20 MG TAB PO SCH ×2 (08:35→20:30)
[2017-09-16] MEDS: CHOLECALCIFEROL VIT D3 2,000 UNITS TAB/CAP PO SCH (08:35)
[2017-09-16] MEDS: METOPROLOL SUCCINATE XR 25 MG TAB PO SCH (08:35)
[2017-09-16] MEDS: LISINOPRIL 2.5 MG TAB PO SCH (08:35)
[2017-09-16] MEDS: SENNOSIDES 1 TAB PO SCH ×2 (08:36→12:38)
[2017-09-16] MEDS ORDERED: SENNOSIDES 1 TAB PO PRN (09:24)
[2017-09-16] MEDS: NYSTATIN POWDER 15 GM BTL TP SCH ×3 (09:38→21:08)
--- NOTE | 2017-09-16 11:35 | SOAPPROG ---
SOAP Progress Note Assessment/Plan: 62 yo F with PE following myxedema coma, complicated by delirium. Today's update: INR was rejected, being read processed today. Family conference today with all therapies was conducted, total of 45 min was spent on the floor in the care of the patient, the majority of which was spent counseling and coordination of care regarding family conference and answer questions for family. Orders for Lasix and potassium were not congruent with prior day's note, ordered Lasix 10 mg daily with 10 mEq of potassium daily. Appears mildly fluid overload today. From a functional standpoint, she will choir 24 hr supervision and some hands-on assistance when she goes home, goal to leave next Friday. Anticipate mobility at the wheelchair level with home modifications for accessibility. is available to be at home 24 hr a day 7 days a week for assistance. Remainder of plan below is relatively unchanged. * Hypoxemia with pulmonary emboli. Continue warfarin management per pharmacy. Continue oxygen as needed. * Continue incentive spirometry. * Overnight oximetry showed desaturation even on 2 L of oxygen. She should have full sleep study after discharge to rule out obstructive sleep apnea. * Deficits to mobility and activities of daily living and motor weakness. * Initial functional independence measure 61 on 09/08/2017, improved to 77 as of 09/15/2017. Standby assist for bed mobility. Transfers contact guard assist and multiple cues using front wheeled walker. Her knees buckle and predictably. She has ambulated up to 60 ft with a front wheeled walker. Upper body dressing standby assist, lower body dressing close standby assist to contact guard assist, needing multiple cues. Legs frequently buckle * Continue PT and OT to optimize mobility and activities of daily living toward the independent or modified independent level for discharge to home. * Cognitive effects. May still have some delirium from myxedema coma. Brain MRI showed age-related changes and microvascular ischemic changes. * Very dysexecutive. Deficits to memory, new learning, problem solving and attention. No improvement noted over past week, as of 09/15/2017. * Has preserved social interaction. * Continue Speech and Language Pathology. * Cognitive recovery from myxedema coma can take weeks to months and may be incomplete. * Hypertension. Continue lisinopril and metoprolol. Adequate control. * Dizziness. Not orthostatic. Per therapy staff, unlikely to be vestibular. * Dilated cardiomyopathy. Lisinopril and metoprolol are appropriate medications. Reviewed records from [facility]. * She had severe cardiomegaly on a chest x-ray. * Echocardiogram showed normal LV size with low-normal systolic function with ejection fraction of 55-55% and moderate to severe hypokinesis in the mid septal and inferior segments. * She had a nuclear perfusion scan which showed no perfusion defects. * Has been on furosemide 20 mg q.day [id number]. Slightly low potassium and tachycardia this morning, 09/15/2017. Repleted potassium with single dose 20 mEq today. Weight is down considerably but still with JVD and edema. Will decrease Lasix dose from 20 mg to 10 mg p.o. Q.day. Had potassium chloride 10 mEq q.day. * Abdominal nodule. Unclear etiology. Nontender. Wonder if she may have had extravasation of blood followed by clotting from on abdominal injection of enoxaparin. She can follow up as an outpatient. Consider ultrasound. * Recent myxedema coma. Continue levothyroxine. Follow up with primary care after discharge. * Vitamin D deficiency. Transitioned from 50,000 units once a week to 2000 mg q.day of cholecalciferol. Follow up with primary care after discharge. * History of right humerus fracture. Given her long history of thyroid abnormalities, she may also have osteoporosis. Continue vitamin D. She should have a DEXA screen as an outpatient per primary care. * Prophylaxis. She already has a pulmonary embolus and she is on treatment dose of enoxaparin with transition toward warfarin. She has famotidine for GI prophylaxis. Needing 24 hr assistance largely due to cognitive issues. 09/24/2017, home with family. Followup. She is to follow up with emulsification operator Dr. Saba at [facility]. She may need to establish with a new primary care provider. Follow- up with Endocrinology. 09/11/17 08:33 09/16/17 11:31 Subjective: Chief complaint: Rehab progress No acute events overnight. Patient denies any new shortness of breath or chest pain, no new numbness, tingling, or weakness. Family conference was eventful. Nursing noted that she still has frequent urination at night and intermittently using call light, continue to require oxygen at night for desaturation. Diarrhea issues are okay, PT notes that she still needs some contact guard assist are minimum assistance mostly because of fatigue, leg buckling, cognitive issues. OT notes that she needs some hands-on assistance for balance especially with ADLs. Working on meal prep. Speech notes that she has made progress but still has significant issues with me and poor insight. New memory formation is impaired, thought possibly due to hypoxic episodes. She will need assistance with medications and cognitive issues at home. is available 24 hr a day to assist. Objective: Vital Signs Temp Pulse Resp BP Pulse Ox 36.8 C 84 16 132/86 H 90 L 09/16/17 06:20 09/16/17 08:35 09/16/17 06:20 09/16/17 08:35 09/16/17 06:20 Laboratory Results 09/15/17 06:02 09/15/17 09/16/17 09/17/17 05:59 05:59 05:59 Intake Total 1150 1010 Output Total 800 800 Balance 350 210 PT REJ 09/16/17 06:00 INR REJ 09/16/17 06:00 Physical Exam - Physical Exam General Appearance: WD/WN, alert, no apparent distress EENT: No scleral icterus (R), No scleral icterus (L) Respiratory: No respiratory distress, No accessory muscle use Cardiac/Chest: normal peripheral pulses, regular rate, rhythm, edema (1+ edema bilaterally) Skin: normal color, warm/dry, No cyanosis, No diaphoresis Extremities: pedal edema, No calf tenderness Neuro/Psych: alert, normal mood/affect ICD10 Worksheet Patient Problems: Problems Problem Status Onset Pulmonary embolism Acute
[2017-09-16] MEDS: POTASSIUM CL 10 MEQ TAB PO SCH (12:37)
[2017-09-16 14:01] LABS: INR 2.95 (0.83-1.16); PROTIME(PATIENT) 30.6 SEC (12.0-15.0)
[2017-09-16] MEDS ORDERED: WARFARIN SODIUM 2.5 MG TAB PO ONE (16:00)
[2017-09-17] MEDS: LEVOTHYROXINE 125 MCG TAB PO SCH (06:02)
[2017-09-17] MEDS: FAMOTIDINE 20 MG TAB PO SCH ×2 (08:45→21:26)
[2017-09-17] MEDS: CHOLECALCIFEROL VIT D3 2,000 UNITS TAB/CAP PO SCH (08:45)
[2017-09-17] MEDS: FUROSEMIDE 20 MG TAB PO SCH (08:46)
[2017-09-17 08:47] LABS: INR 2.9 (0.83-1.16); PROTIME(PATIENT) 30.2 SEC (12.0-15.0)
[2017-09-17] MEDS: LISINOPRIL 2.5 MG TAB PO SCH (08:47)
[2017-09-17] MEDS: POTASSIUM CL 10 MEQ TAB PO SCH (08:48)
[2017-09-17] MEDS: METOPROLOL SUCCINATE XR 25 MG TAB PO SCH (08:48)
[2017-09-17] MEDS: NYSTATIN POWDER 15 GM BTL TP SCH ×3 (09:44→21:35)
--- NOTE | 2017-09-17 13:07 | SOAPPROG ---
SOAP Progress Note Assessment/Plan: Assessment: * Hypoxemia with pulmonary emboli. Continue warfarin management per pharmacy. Continue oxygen as needed. * Continue incentive spirometry. * Overnight oximetry showed desaturation even on 2 L of oxygen. She should have full sleep study after discharge to rule out obstructive sleep apnea. * Continue oxygen 2 L overnight and p.r.n. during the day * Deficits to mobility and activities of daily living and motor weakness. * Initial functional independence measure 61 on 09/08/2017, improved to 71 as of 09/15/2017. Standby assist for bed mobility. Transfers contact guard assist and multiple cues using front wheeled walker. Her knees buckle and predictably. She has ambulated up to 60 ft with a front wheeled walker. Upper body dressing standby assist, lower body dressing close standby assist to contact guard assist, needing multiple cues. * Continue PT and OT to optimize mobility and activities of daily living toward the independent or modified independent level for discharge to home. * Cognitive effects. May still have some delirium from myxedema coma. Brain MRI showed age-related changes and microvascular ischemic changes. * Very dysexecutive. Deficits to memory, new learning, problem solving and attention. No improvement noted over past week, as of 09/15/2017. * Has preserved social interaction. * Continue Speech and Language Pathology. * Cognitive recovery from myxedema coma can take weeks to months and may be incomplete. * Hypertension. Continue lisinopril and metoprolol. Adequate control. * Dizziness. Not orthostatic. Per therapy staff, unlikely to be vestibular. * Dilated cardiomyopathy. Lisinopril and metoprolol are appropriate medications. Reviewed records from [facility]. * She had severe cardiomegaly on a chest x-ray. * Echocardiogram showed normal LV size with low-normal systolic function with ejection fraction of 55-55% and moderate to severe hypokinesis in the mid septal and inferior segments. * She had a nuclear perfusion scan which showed no perfusion defects. * Has been on furosemide 20 mg q.day [id number]. Slightly low potassium and tachycardia 09/15/2017. Repleted potassium with single dose 20 mEq. Weight is down considerably but still with JVD and edema. Decreased Lasix dose from 20 mg to 10 mg p.o. Q.day. Initiated potassium chloride 10 mEq q.day. * Abdominal nodule. Unclear etiology. Nontender. Wonder if she may have had extravasation of blood followed by clotting from on abdominal injection of enoxaparin. She can follow up as an outpatient. Consider ultrasound. * Recent myxedema coma. Continue levothyroxine. Follow up with primary care after discharge. * Vitamin D deficiency. Transitioned from 50,000 units once a week to 2000 mg q.day of cholecalciferol. Follow up with primary care after discharge. * History of right humerus fracture. Given her long history of thyroid abnormalities, she may also have osteoporosis. Continue vitamin D. She should have a DEXA screen as an outpatient per primary care. * Prophylaxis. She already has a pulmonary embolus and she is on treatment dose of enoxaparin with transition toward warfarin. She has famotidine for GI prophylaxis. Needing 24 hr assistance largely due to cognitive issues; will provide. Discharge date of 09/23/2017. Followup. She is to follow up with java software architect Dr. Saba at [facility]. She may need to establish with a new primary care provider. 09/17/17 13:07 Subjective: No complaints. Reports she slept better last night. No cough or dyspnea. Nurse reports she did not use oxygen overnight. Objective: Vital Signs Temp Pulse Resp BP Pulse Ox 36.9 C 74 16 119/62 95 09/17/17 06:31 09/17/17 08:48 09/17/17 06:31 09/17/17 08:48 09/17/17 06:31 Laboratory Results 09/15/17 06:02 09/16/17 09/17/17 09/18/17 05:59 05:59 05:59 Intake Total 1010 1520 680 Output Total 800 200 400 Balance 210 1320 280 PT 30.2 SEC (12.0-15.0) H 09/17/17 06:00 INR 2.90 (0.83-1.16) H 09/17/17 06:00 Physical Exam - Physical Exam General Appearance: WD/WN, alert, no apparent distress Respiratory: normal breath sounds, No crackles, No rhonchi, No wheezing Cardiac/Chest: regular rate, rhythm, edema (Trace to 1+ bilateral pretibial), No JVD, No diastolic murmur, No systolic murmur Skin: normal color, warm/dry Neuro/Psych: alert, normal mood/affect ICD10 Worksheet Patient Problems: Problems Problem Status Onset Pulmonary embolism Acute
[2017-09-17] MEDS ORDERED: WARFARIN SODIUM 2.5 MG TAB PO ONE (16:00)
[2017-09-18] MEDS: LEVOTHYROXINE 125 MCG TAB PO SCH (06:23)
[2017-09-18 08:19] LABS: INR 2.85 (0.83-1.16); PROTIME(PATIENT) 29.8 SEC (12.0-15.0)
--- NOTE | 2017-09-18 09:28 | SOAPPROG ---
SOAP Progress Note Assessment/Plan: 62 yo F with PE following myxedema coma, complicated by delirium. Today's update: Doing well in rehabilitation. INR today is 2.85, stable. Appreciate help from pharmacy. Weight is also 71 kg and stable. Plan to check electrolytes tomorrow given her history of hypokalemia and changes to her medications. Otherwise, plan was reviewed and is relatively unchanged. A total of 15 min was spent on the floor in the care of the patient, the majority of which was spent in counseling coordination of care regarding the rehab plan. * Hypoxemia with pulmonary emboli. Continue warfarin management per pharmacy. Continue oxygen as needed. * Continue incentive spirometry. * Overnight oximetry showed desaturation even on 2 L of oxygen. She should have full sleep study after discharge to rule out obstructive sleep apnea. * Continue oxygen 2 L overnight and p.r.n. during the day * Deficits to mobility and activities of daily living and motor weakness. * Initial functional independence measure 61 on 09/08/2017, improved to 71 as of 09/15/2017. Standby assist for bed mobility. Transfers contact guard assist and multiple cues using front wheeled walker. Her knees buckle and predictably. She has ambulated up to 60 ft with a front wheeled walker. Upper body dressing standby assist, lower body dressing close standby assist to contact guard assist, needing multiple cues. * Continue PT and OT to optimize mobility and activities of daily living toward the independent or modified independent level for discharge to home. * Cognitive effects. May still have some delirium from myxedema coma. Brain MRI showed age-related changes and microvascular ischemic changes. * Very dysexecutive. Deficits to memory, new learning, problem solving and attention. No improvement noted over past week, as of 09/15/2017. * Has preserved social interaction. * Continue Speech and Language Pathology. * Cognitive recovery from myxedema coma can take weeks to months and may be incomplete. * Hypertension. Continue lisinopril and metoprolol. Adequate control. * Dizziness. Not orthostatic. Per therapy staff, unlikely to be vestibular. * Dilated cardiomyopathy. Lisinopril and metoprolol are appropriate medications. Reviewed records from [facility]. * She had severe cardiomegaly on a chest x-ray. * Echocardiogram showed normal LV size with low-normal systolic function with ejection fraction of 55-55% and moderate to severe hypokinesis in the mid septal and inferior segments. * She had a nuclear perfusion scan which showed no perfusion defects. * Has been on furosemide 20 mg q.day . Slightly low potassium and tachycardia . Repleted potassium with single dose 20 mEq. Weight is down considerably but still with JVD and edema. Decreased Lasix dose from 20 mg to 10 mg p.o. Q.day. Initiated potassium chloride 10 mEq q.day. * Abdominal nodule. Unclear etiology. Nontender. Wonder if she may have had extravasation of blood followed by clotting from on abdominal injection of enoxaparin. She can follow up as an outpatient. Consider ultrasound. * Recent myxedema coma. Continue levothyroxine. Follow up with primary care after discharge. * Vitamin D deficiency. Transitioned from 50,000 units once a week to 2000 mg q.day of cholecalciferol. Follow up with primary care after discharge. * History of right humerus fracture. Given her long history of thyroid abnormalities, she may also have osteoporosis. Continue vitamin D. She should have a DEXA screen as an outpatient per primary care. * Prophylaxis. She already has a pulmonary embolus and she is on treatment dose of enoxaparin with transition toward warfarin. She has famotidine for GI prophylaxis. Needing 24 hr assistance largely due to cognitive issues; will provide. Discharge date of 09/23/2017. Followup. She is to follow up with motorcycle deliverer Dr. Saba at [facility]. She may need to establish with a new primary care provider. 09/11/17 08:33 09/16/17 11:31 09/18/17 09:26 09/18/17 10:26 Subjective: Chief complaint: Rehab progress No acute events overnight. Patient denies any new shortness of breath or chest pain, no new numbness, tingling, or weakness. She endorses that she has had no new bleeding. INR is 2.85 and stable, appreciate help from pharmacy. Her weight is also stable is 71 kg. She has had some swelling but feels there is already a difference with the new cardiac diet as well as low-dose diuretic. Counseled her that we are checking electrolytes tomorrow as well. Therapy going well, nothing as a barrier that we know of. Objective: Vital Signs Temp Pulse Resp BP Pulse Ox 37.1 C 94 18 115/83 H 94 09/18/17 06:13 09/18/17 06:13 09/18/17 06:13 09/18/17 06:13 09/18/17 06:13 Laboratory Results 09/15/17 06:02 09/17/17 09/18/17 09/19/17 05:59 05:59 05:59 Intake Total 1520 1970 Output Total 200 1151 700 Balance 1320 819 -700 PT 29.8 SEC (12.0-15.0) H 09/18/17 06:35 INR 2.85 (0.83-1.16) H 09/18/17 06:35 Physical Exam - Physical Exam General Appearance: WD/WN, alert, no apparent distress EENT: No scleral icterus (R), No scleral icterus (L) Respiratory: No respiratory distress, No accessory muscle use Cardiac/Chest: normal peripheral pulses, regular rate, rhythm, edema (Trace bilateral) Skin: normal color, warm/dry, No cyanosis, No diaphoresis Neuro/Psych: alert, normal mood/affect ICD10 Worksheet Patient Problems: Problems Problem Status Onset Pulmonary embolism Acute
[2017-09-18] MEDS: FAMOTIDINE 20 MG TAB PO SCH ×2 (09:35→20:46)
[2017-09-18] MEDS: CHOLECALCIFEROL VIT D3 2,000 UNITS TAB/CAP PO SCH (09:35)
[2017-09-18] MEDS: FUROSEMIDE 20 MG TAB PO SCH (09:35)
[2017-09-18] MEDS: POTASSIUM CL 10 MEQ TAB PO SCH (09:35)
[2017-09-18] MEDS: NYSTATIN POWDER 15 GM BTL TP SCH ×3 (09:36→20:46)
[2017-09-18] MEDS: LISINOPRIL 2.5 MG TAB PO SCH (09:39)
[2017-09-18] MEDS: METOPROLOL SUCCINATE XR 25 MG TAB PO SCH (09:39)
[2017-09-18] MEDS ORDERED: WARFARIN SODIUM 2.5 MG TAB PO ONE (16:00)
[2017-09-19] MEDS: LEVOTHYROXINE 125 MCG TAB PO SCH (05:29)
[2017-09-19] MEDS: NYSTATIN POWDER 15 GM BTL TP SCH ×3 (08:01→21:44)
[2017-09-19 08:36] LABS: INR 2.69 (0.83-1.16); PROTIME(PATIENT) 28.5 SEC (12.0-15.0)
[2017-09-19] MEDS: FAMOTIDINE 20 MG TAB PO SCH ×2 (08:46→20:01)
[2017-09-19] MEDS: LISINOPRIL 2.5 MG TAB PO SCH (08:46)
[2017-09-19] MEDS: CHOLECALCIFEROL VIT D3 2,000 UNITS TAB/CAP PO SCH (08:46)
[2017-09-19] MEDS: METOPROLOL SUCCINATE XR 25 MG TAB PO SCH (08:46)
[2017-09-19] MEDS: POTASSIUM CL 10 MEQ TAB PO SCH (08:47)
[2017-09-19] MEDS: FUROSEMIDE 20 MG TAB PO SCH (13:56)
--- NOTE | 2017-09-19 14:40 | SOAPPROG ---
SOAP Progress Note Assessment/Plan: Assessment: * Hypoxemia with pulmonary emboli. Continue warfarin management per pharmacy. Continue oxygen as needed. * Continue incentive spirometry. * Overnight oximetry showed desaturation even on 2 L of oxygen. She should have full sleep study after discharge to rule out obstructive sleep apnea. * Continue oxygen 2 L overnight and p.r.n. during the day * Deficits to mobility and activities of daily living and motor weakness. * Initial functional independence measure 61 on 09/08/2017, improved to 71 as of 09/15/2017. Standby assist for bed mobility. Transfers contact guard assist and multiple cues using front wheeled walker. Her knees buckle unpredictably. She has ambulated up to 60 ft with a front wheeled walker. Upper body dressing standby assist, lower body dressing close standby assist to contact guard assist , needing multiple cues. * Continue PT and OT to optimize mobility and activities of daily living toward the independent or modified independent level for discharge to home. * Cognitive effects. May still slow recovery from myxedema coma. Brain MRI showed age-related changes and microvascular ischemic changes. * Very dysexecutive. Deficits to memory, new learning, problem solving and attention. No improvement noted over past week, as of 09/15/2017. * Has preserved social interaction. * Continue Speech and Language Pathology. * Cognitive recovery from myxedema coma can take weeks to months and may be incomplete. * Nocturia and urinary incontinence overnight. * Per patient's request will discontinue furosemide. * Advise limiting fluid intake after dinner. Discussed with nursing. * Continue to monitor. * Hypertension. Continue lisinopril and metoprolol. Adequate control. * Dizziness. Not orthostatic. Per therapy staff, unlikely to be vestibular. * Dilated cardiomyopathy. Lisinopril and metoprolol are appropriate medications. Reviewed records from [facility]. * She had severe cardiomegaly on a chest x-ray. * Echocardiogram showed normal LV size with low-normal systolic function with ejection fraction of 55-55% and moderate to severe hypokinesis in the mid septal and inferior segments. * She had a nuclear perfusion scan which showed no perfusion defects. * Discontinuing furosemide. Was on 20 mg q.day starting [id number]. Slightly low potassium and tachycardia 09/15/2017. Repleted potassium with single dose 20 mEq. Decreased Lasix dose from 20 mg to 10 mg p.o. q.day on 09/15/2017. Initiated potassium chloride 10 mEq q.day on 09/15/2017 * Monitor for recurrent edema or JVD.. * Abdominal nodule. Unclear etiology. Nontender. Wonder if she may have had extravasation of blood followed by clotting from on abdominal injection of enoxaparin. She can follow up as an outpatient. Consider ultrasound. * Recent myxedema coma. Continue levothyroxine. Follow up with primary care after discharge. * Vitamin D deficiency. Transitioned from 50,000 units once a week to 2000 mg q.day of cholecalciferol. Follow up with primary care after discharge. * History of right humerus fracture. Given her long history of thyroid abnormalities, she may also have osteoporosis. Continue vitamin D. She should have a DEXA screen as an outpatient per primary care. * Prophylaxis. She already has a pulmonary embolus and she is on treatment dose of enoxaparin with transition toward warfarin. She has famotidine for GI prophylaxis. Needing 24 hr assistance largely due to cognitive issues; will provide. Discharge date of 09/24/2017. Home PT OT and CLINICAL RESEARCH MONITOR; RN for blood draws for INR. Followup. She is to follow up with jowl trimmer Dr. Saba at [facility]. She may need to establish with a new primary care provider. 09/19/17 14:36 Subjective: Complains of nocturia and nursing noted incontinent x2 overnight. Continues to require alarms bed and chair, did daytime and nighttime. Needs a gait belt for ambulation and transfers because her knees periodically buckle. She refused her morning furosemide due to her nocturia. She reports drinking a lot of water after bedtime. Nursing reports that she does not drink much water but primarily drinks coffee. Objective: Vital Signs Temp Pulse Resp BP Pulse Ox 37.0 C 97 18 121/85 H 96 09/19/17 09:31 09/19/17 08:46 09/19/17 09:31 09/19/17 08:46 09/19/17 09:31 Laboratory Results 09/15/17 06:02 09/18/17 09/19/17 09/20/17 05:59 05:59 05:59 Intake Total 1970 440 460 Output Total 1151 825 500 Balance 819 -385 -40 PT 28.5 SEC (12.0-15.0) H 09/19/17 06:00 INR 2.69 (0.83-1.16) H 09/19/17 06:00 Physical Exam - Physical Exam General Appearance: WD/WN, alert, no apparent distress Respiratory: normal breath sounds, No crackles, No rhonchi, No wheezing Cardiac/Chest: regular rate, rhythm, edema (Trace to 1+ bilateral lower extremities), No JVD, No diastolic murmur, No systolic murmur Skin: normal color, warm/dry Neuro/Psych: alert, normal mood/affect, abnormal gait (Slow, slightly narrow based, with front wheeled walker. Walks relatively short distances with physical therapy maintaining contact with gait belt and wheelchair following.), cognition abnormalities ICD10 Worksheet Patient Problems: Problems Problem Status Onset Pulmonary embolism Acute
[2017-09-19] MEDS: WARFARIN SODIUM 2.5 MG TAB PO SCH (16:06)
[2017-09-20] MEDS: LEVOTHYROXINE 125 MCG TAB PO SCH (05:45)
[2017-09-20 08:08] LABS: INR 2.46 (0.83-1.16); PROTIME(PATIENT) 26.6 SEC (12.0-15.0)
[2017-09-20] MEDS: CHOLECALCIFEROL VIT D3 2,000 UNITS TAB/CAP PO SCH (08:10)
[2017-09-20] MEDS: FAMOTIDINE 20 MG TAB PO SCH ×2 (08:10→20:04)
[2017-09-20] MEDS: METOPROLOL SUCCINATE XR 25 MG TAB PO SCH (08:10)
[2017-09-20] MEDS: LISINOPRIL 2.5 MG TAB PO SCH (08:10)
[2017-09-20] MEDS: NYSTATIN POWDER 15 GM BTL TP SCH ×3 (08:10→21:46)
--- NOTE | 2017-09-20 08:44 | SOAPPROG ---
SOAP Progress Note Assessment/Plan: Assessment: * Hypoxemia with pulmonary emboli. Continue warfarin management per pharmacy. Continue oxygen as needed. CURRENTLY NOT USING SUPPLEMENTAL O2. * Continue incentive spirometry. * Overnight oximetry showed desaturation even on 2 L of oxygen. She should have full sleep study after discharge to rule out obstructive sleep apnea. * Continue oxygen 2 L overnight and p.r.n. during the day * Deficits to mobility and activities of daily living and motor weakness. * Initial functional independence measure 61 on 09/08/2017, improved to 71 as of 09/15/2017. Standby assist for bed mobility. Transfers contact guard assist and multiple cues using front wheeled walker. Her knees buckle unpredictably. She has ambulated up to 60 ft with a front wheeled walker. Upper body dressing standby assist, lower body dressing close standby assist to contact guard assist , needing multiple cues. ENCOURAGE PATIENT TO HAVE STAFF WALK WITH HER SEVERAL TIMES PER DAY. SHE IS USING THE FWW WITH CONTACT GUARD ASSIST AND GAIT BELT. * Continue PT and OT to optimize mobility and activities of daily living toward the independent or modified independent level for discharge to home. * Cognitive effects. May still slow recovery from myxedema coma. Brain MRI showed age-related changes and microvascular ischemic changes. * Very dysexecutive. Deficits to memory, new learning, problem solving and attention. No improvement noted over past week, as of 09/15/2017. * Has preserved social interaction. * Continue Speech and Language Pathology. * Cognitive recovery from myxedema coma can take weeks to months and may be incomplete. * Nocturia and urinary incontinence overnight. * Per patient's request will discontinue furosemide. * Advise limiting fluid intake after dinner. Discussed with nursing. * Continue to monitor. * Hypertension. Continue lisinopril and metoprolol. Adequate control. * Dizziness. Not orthostatic. Per therapy staff, unlikely to be vestibular. SHE REPORTS HER DIZZINESS IS RESOLVING. * Dilated cardiomyopathy. Lisinopril and metoprolol are appropriate medications. Reviewed records from [facility]. * She had severe cardiomegaly on a chest x-ray. * Echocardiogram showed normal LV size with low-normal systolic function with ejection fraction of 55-55% and moderate to severe hypokinesis in the mid septal and inferior segments. * She had a nuclear perfusion scan which showed no perfusion defects. * Discontinuing furosemide. Was on 20 mg q.day starting [id number]. Slightly low potassium and tachycardia 09/15/2017. Repleted potassium with single dose 20 mEq. Decreased Lasix dose from 20 mg to 10 mg p.o. q.day on 09/15/2017. Initiated potassium chloride 10 mEq q.day on 09/15/2017 * Monitor for recurrent edema or JVD.. * Abdominal nodule. Unclear etiology. Nontender. Wonder if she may have had extravasation of blood followed by clotting from on abdominal injection of enoxaparin. She can follow up as an outpatient. Consider ultrasound. * Recent myxedema coma. Continue levothyroxine. Follow up with primary care after discharge. * Vitamin D deficiency. Transitioned from 50,000 units once a week to 2000 mg q.day of cholecalciferol. Follow up with primary care after discharge. * History of right humerus fracture. Given her long history of thyroid abnormalities, she may also have osteoporosis. Continue vitamin D. She should have a DEXA screen as an outpatient per primary care. * Prophylaxis. She already has a pulmonary embolus and she is on treatment dose of enoxaparin with transition toward warfarin. She has famotidine for GI prophylaxis. PROTHROMBIN TIME THIS MORNING 2.46 Needing 24 hr assistance largely due to cognitive issues; will provide. Discharge date of 09/24/2017. Home PT OT and SPECIAL TECHNICAL OPERATIONS OFFICER; RN for blood draws for INR. Followup. She is to follow up with gate agent Dr. Saba at [facility]. She may need to establish with a new primary care provider. Plan: 09/20/17 08:45 Subjective: No complaints this morning. She denies shortness of breath or chest pain. She has had experience some intermittent dizziness over the past few days but this is resolving. She woke up this morning with some left leg swelling but this has resolved as well. Objective: Vital Signs Temp Pulse Resp BP Pulse Ox 36.4 C 73 16 121/82 H 92 09/20/17 05:53 09/20/17 05:53 09/20/17 05:53 09/20/17 05:53 09/20/17 05:53 Laboratory Results 09/15/17 06:02 09/19/17 09/20/17 09/21/17 05:59 05:59 05:59 Intake Total 440 1300 Output Total 825 2000 300 Balance -385 -700 -300 PT 26.6 SEC (12.0-15.0) H 09/20/17 06:00 INR 2.46 (0.83-1.16) H 09/20/17 06:00 Physical Exam - Physical Exam General Appearance: WD/WN, alert, no apparent distress Respiratory: lungs clear, normal breath sounds Cardiac/Chest: No edema, No gallop, No JVD Abdomen: normal bowel sounds, non-tender, soft Skin: normal color (Bilateral upper and lower extremity weakness but motor strength is within functional limits.) ICD10 Worksheet Patient Problems: Problems Problem Status Onset Pulmonary embolism Acute
[2017-09-20] MEDS: WARFARIN SODIUM 2.5 MG TAB PO SCH (16:11)
[2017-09-21] MEDS: LEVOTHYROXINE 125 MCG TAB PO SCH (05:48)
[2017-09-21 09:04] LABS: INR 2.37 (0.83-1.16); PROTIME(PATIENT) 25.9 SEC (12.0-15.0)
[2017-09-21] MEDS: CHOLECALCIFEROL VIT D3 2,000 UNITS TAB/CAP PO SCH (09:22)
[2017-09-21] MEDS: NYSTATIN POWDER 15 GM BTL TP SCH (09:22)
[2017-09-21] MEDS: LISINOPRIL 2.5 MG TAB PO SCH (09:22)
[2017-09-21] MEDS: METOPROLOL SUCCINATE XR 25 MG TAB PO SCH (09:22)
[2017-09-21] MEDS: FAMOTIDINE 20 MG TAB PO SCH ×2 (09:22→20:17)
--- NOTE | 2017-09-21 10:00 | SOAPPROG ---
SOAP Progress Note Assessment/Plan: Assessment: * Hypoxemia with pulmonary emboli. Continue warfarin management per pharmacy. Continue oxygen as needed. CURRENTLY NOT USING SUPPLEMENTAL O2. DENIES SHORTNESS OF BREATH. * Continue incentive spirometry. * Overnight oximetry showed desaturation even on 2 L of oxygen. She should have full sleep study after discharge to rule out obstructive sleep apnea. * Continue oxygen 2 L overnight and p.r.n. during the day * Deficits to mobility and activities of daily living and motor weakness. AMBULATION DISTANCE IS INCREASING, PATIENT REPORTS SHE DOES NOT FEEL WEAKNESS ON 1 SIDE RELATIVE TO THE OTHER SIDE. * Initial functional independence measure 61 on 09/08/2017, improved to 71 as of 09/15/2017. Standby assist for bed mobility. Transfers contact guard assist and multiple cues using front wheeled walker. Her knees buckle unpredictably. She has ambulated up to 60 ft with a front wheeled walker. Upper body dressing standby assist, lower body dressing close standby assist to contact guard assist , needing multiple cues. ENCOURAGE PATIENT TO HAVE STAFF WALK WITH HER SEVERAL TIMES PER DAY. SHE IS USING THE FWW WITH CONTACT GUARD ASSIST AND GAIT BELT. * Continue PT and OT to optimize mobility and activities of daily living toward the independent or modified independent level for discharge to home. * Cognitive effects. May still slow recovery from myxedema coma. Brain MRI showed age-related changes and microvascular ischemic changes. * Very dysexecutive. Deficits to memory, new learning, problem solving and attention. No improvement noted over past week, as of 09/15/2017. * Has preserved social interaction. * Continue Speech and Language Pathology. * Cognitive recovery from myxedema coma can take weeks to months and may be incomplete. * Nocturia and urinary incontinence overnight. * Per patient's request will discontinue furosemide. * Advise limiting fluid intake after dinner. Discussed with nursing. * Continue to monitor. * Hypertension. Continue lisinopril and metoprolol. BLOOD PRESSURE THIS MORNING 113/76 * Dizziness. Not orthostatic. Per therapy staff, unlikely to be vestibular. SHE REPORTS HER DIZZINESS IS RESOLVING. * Dilated cardiomyopathy. Lisinopril and metoprolol are appropriate medications. Reviewed records from [facility]. * She had severe cardiomegaly on a chest x-ray. * Echocardiogram showed normal LV size with low-normal systolic function with ejection fraction of 55-55% and moderate to severe hypokinesis in the mid septal and inferior segments. * She had a nuclear perfusion scan which showed no perfusion defects. * Discontinuing furosemide. Was on 20 mg q.day starting [id number]. Slightly low potassium and tachycardia 09/15/2017. Repleted potassium with single dose 20 mEq. Decreased Lasix dose from 20 mg to 10 mg p.o. q.day on 09/15/2017. Initiated potassium chloride 10 mEq q.day on 09/15/2017 * Monitor for recurrent edema or JVD.. * Abdominal nodule. Unclear etiology. Nontender. Wonder if she may have had extravasation of blood followed by clotting from on abdominal injection of enoxaparin. She can follow up as an outpatient. Consider ultrasound. * Recent myxedema coma. Continue levothyroxine. Follow up with primary care after discharge. * Vitamin D deficiency. Transitioned from 50,000 units once a week to 2000 mg q.day of cholecalciferol. Follow up with primary care after discharge. * History of right humerus fracture. Given her long history of thyroid abnormalities, she may also have osteoporosis. Continue vitamin D. She should have a DEXA screen as an outpatient per primary care. * Prophylaxis. She already has a pulmonary embolus and she is on treatment dose of enoxaparin with transition toward warfarin. She has famotidine for GI prophylaxis. INR THIS MORNING WAS 2.37 Needing 24 hr assistance largely due to cognitive issues; will provide. Discharge date of 09/24/2017. Home PT OT and HAZARDOUS MATERIALS TANKER DRIVER; RN for blood draws for INR. Followup. She is to follow up with tower erector helper Dr. Saba at [facility]. She may need to establish with a new primary care provider. Subjective: NO COMPLAINTS THIS MORNING. SHE REPORTS THAT SHE IS INCREASING AND HER AMBULATING DISTANCES AND PERFORMING BEDSIDE STRENGTHENING EXERCISES. Objective: Vital Signs Temp Pulse Resp BP Pulse Ox 36.9 C 82 16 113/76 91 L 09/21/17 06:18 09/21/17 06:18 09/21/17 06:18 09/21/17 06:18 09/21/17 06:18 Laboratory Results 09/15/17 06:02 09/20/17 09/21/17 09/22/17 05:59 05:59 05:59 Intake Total 1300 1000 Output Total 2000 1400 Balance -700 -400 PT 25.9 SEC (12.0-15.0) H 09/21/17 06:00 INR 2.37 (0.83-1.16) H 09/21/17 06:00 Physical Exam - Physical Exam General Appearance: WD/WN, alert, no apparent distress Respiratory: lungs clear, normal breath sounds Cardiac/Chest: No edema Abdomen: non-tender, soft Extremities: No swelling, No Omar's sign (THE MOTOR EXAM WHILE SEATED REVEALS 4 +/5 STRENGTH OF PROXIMAL AND DISTAL MUSCLE GROUPS OF BOTH UPPER AND LOWER EXTREMITIES.) Neuro/Psych: No speech abnormalities ICD10 Worksheet Patient Problems: Problems Problem Status Onset Pulmonary embolism Acute
[2017-09-21] MEDS ORDERED: NYSTATIN POWDER 15 GM BTL TP PRN (10:24)
[2017-09-21] MEDS ORDERED: WARFARIN SODIUM 5 MG TAB PO SCH (16:00)
[2017-09-21] MEDS ORDERED: NYSTATIN POWDER 15 GM BTL TP SCH (16:00)
[2017-09-22] MEDS: LEVOTHYROXINE 125 MCG TAB PO SCH (06:23)
[2017-09-22 08:26] LABS: INR 2.44 (0.83-1.16); PROTIME(PATIENT) 26.5 SEC (12.0-15.0)
[2017-09-22] MEDS: METOPROLOL SUCCINATE XR 25 MG TAB PO SCH (09:04)
[2017-09-22] MEDS: FAMOTIDINE 20 MG TAB PO SCH ×2 (09:04→19:58)
[2017-09-22] MEDS: LISINOPRIL 2.5 MG TAB PO SCH (09:04)
[2017-09-22] MEDS: CHOLECALCIFEROL VIT D3 2,000 UNITS TAB/CAP PO SCH (09:04)
--- NOTE | 2017-09-22 11:50 | SOAPPROG ---
SOAP Progress Note Assessment/Plan: Assessment: * Hypoxemia with pulmonary emboli. Continue warfarin management per pharmacy. Continue oxygen as needed. * Continue incentive spirometry. * Overnight oximetry showed desaturation even on 2 L of oxygen. She should have full sleep study after discharge to rule out obstructive sleep apnea. * Continue oxygen 2 L overnight and p.r.n. during the day * Deficits to mobility and activities of daily living and motor weakness. * Initial functional independence measure 61 on 09/08/2017, improved to 76 as of 09/15/2017; to 88 as of 09/22/2017. Independent with bed mobility. Transfers with contact guard to standby assist. Ambulated 120 ft with front wheeled walker and contact guard assist. Climbed and descended 3 stairs with bilateral rails and contact guard assist. Has some knee buckling during descent. Did a car transfer with standby assist. Grooming and hygiene is done standing. Standby assist to contact guard assist for shower transfer, toilet transfer and toileting. Independent with upper body dressing and standby assist with lower body dressing. * Continue PT and OT to optimize mobility and activities of daily living toward the independent or modified independent level for discharge to home. * Cognitive effects. May still slow recovery from myxedema coma. Brain MRI showed age-related changes and microvascular ischemic changes. * Very dysexecutive. Deficits to memory, new learning, problem solving and attention. SLUMS /, in dementia range. * Reduced insight. * Has preserved social interaction. * Continue Speech and Language Pathology. * Cognitive recovery from myxedema coma can take weeks to months and may be incomplete. * Nocturia and urinary incontinence overnight. * Per patient's request will discontinue furosemide. * Advise limiting fluid intake after dinner. Discussed with nursing. * Continue to monitor. * Hypertension. Continue lisinopril and metoprolol. Adequate control. * Dizziness. Not orthostatic. Per therapy staff, unlikely to be vestibular. * Dilated cardiomyopathy. Lisinopril and metoprolol are appropriate medications. Reviewed records from [facility]. * She had severe cardiomegaly on a chest x-ray. * Echocardiogram showed normal LV size with low-normal systolic function with ejection fraction of 55-55% and moderate to severe hypokinesis in the mid septal and inferior segments. * She had a nuclear perfusion scan which showed no perfusion defects. * Discontinuing furosemide and potassium supplement 09/19/2017 at patient's request. Was on 20 mg q.day starting [id number]. Slightly low potassium and tachycardia 09/15/2017. Repleted potassium with single dose 20 mEq. Decreased furosemide dose from 20 mg to 10 mg p.o. q.day on 09/15/2017. Initiated potassium chloride 10 mEq q.day on 09/15/2017 * Monitor for recurrent edema or JVD.. * Abdominal nodule. Unclear etiology. Nontender. Wonder if she may have had extravasation of blood followed by clotting from on abdominal injection of enoxaparin. She can follow up as an outpatient. Consider ultrasound. * Recent myxedema coma. Continue levothyroxine. Follow up with primary care after discharge. * Vitamin D deficiency. Transitioned from 50,000 units once a week to 2000 mg q.day of cholecalciferol. Follow up with primary care after discharge. * History of right humerus fracture. Given her long history of thyroid abnormalities, she may also have osteoporosis. Continue vitamin D. She should have a DEXA screen as an outpatient per primary care. * Prophylaxis. She already has a pulmonary embolus and she is on treatment dose of enoxaparin with transition toward warfarin. She has famotidine for GI prophylaxis. Attended staffing, 15 min. Discussed with case management, nursing, dietitian, PT, OT, PLASTICS FABRICATOR AND ASSEMBLER. Continue discharge date of 09/24/2017, home with family.. Home PT OT and PLASTICS FABRICATOR AND ASSEMBLER; RN for blood draws for INR. Followup. She is to follow up with registrar assistant Dr. Saba at [facility]. Primary care provider is at the [facility].. 09/22/17 14:25 Subjective: No complaints. Sleeping well. Not in pain. No cough or dyspnea. Reports she feels a little bit nervous about going home, regarding keeping things organized. Objective: Vital Signs Temp Pulse Resp BP Pulse Ox 36.5 C 77 16 112/70 95 09/22/17 06:40 09/22/17 06:40 09/22/17 06:40 09/22/17 06:40 09/22/17 06:40 Laboratory Results 09/15/17 06:02 09/21/17 09/22/17 09/23/17 05:59 05:59 05:59 Intake Total 1000 540 400 Output Total 1400 1150 200 Balance -400 -610 200 PT 26.5 SEC (12.0-15.0) H 09/22/17 06:30 INR 2.44 (0.83-1.16) H 09/22/17 06:30 - Time Spent With Patient Time Spent With Patient: Greater than 35 min floor time today, including more than 50% of time in coordination of care during staffing meeting, and counseling patient and . Physical Exam - Physical Exam General Appearance: WD/WN, alert, no apparent distress Respiratory: normal breath sounds, No crackles, No rhonchi, No wheezing Cardiac/Chest: regular rate, rhythm, edema (1+ bilateral ankle), JVD (2 cm above clavicle), No diastolic murmur, No systolic murmur Skin: normal color, warm/dry Neuro/Psych: alert, normal mood/affect, oriented x 3 ICD10 Worksheet Patient Problems: Problems Problem Status Onset Pulmonary embolism Acute
[2017-09-22] MEDS: WARFARIN SODIUM 2.5 MG TAB PO SCH (15:59)
[2017-09-23] MEDS: LEVOTHYROXINE 125 MCG TAB PO SCH (05:50)
[2017-09-23 08:13] LABS: INR 2.18 (0.83-1.16); PROTIME(PATIENT) 24.3 SEC (12.0-15.0)
[2017-09-23] MEDS: FAMOTIDINE 20 MG TAB PO SCH (08:28)
[2017-09-23] MEDS: CHOLECALCIFEROL VIT D3 2,000 UNITS TAB/CAP PO SCH (08:28)
[2017-09-23] MEDS: LISINOPRIL 2.5 MG TAB PO SCH (08:28)
[2017-09-23] MEDS: METOPROLOL SUCCINATE XR 25 MG TAB PO SCH (08:29)
[2017-09-23] MEDS ORDERED: FAMOTIDINE 20 MG TAB PO PRN (10:38)
--- NOTE | 2017-09-23 10:47 | PDOREHIP ---
Admission [facility] - Admission - 3 Day Assessment Period Admission Date/Day 1: 09/03/17 Day 2: 09/04/17 Day 3: 09/05/17 Discharge [facility] - Discharge - 3 Day Assessment Period 2 Days Prior to Anticipated Discharge Date: 09/22/17 1 Day Prior to Anticipated Discharge Date: 09/23/17 Anticipated Discharge Date: 09/24/17 - Discharge Skin Conditions Unhealed Pressure Ulcer (1 or more/Stage 1 or >)-Discharge: 0. No
--- NOTE | 2017-09-23 11:01 | SOAPPROG ---
SOAP Progress Note Assessment/Plan: 62 yo F with PE following myxedema coma, complicated by delirium. Today's update: Total of 45 min was spent on the floor in the care of the patient, the majority of which was spent in counseling and coordination of care regarding discharge planning and coordination. Patient will be discharging home and will get follow-up INR drawn on Friday to be sent to the primary care physician. Additionally, the PCP will determine whether not referral to Endocrinology as appropriate based on their management plan. Additionally she will need oxygen on discharge at night because of sleep apnea/nocturnal hypoxia noted on a evening monitor. This study was performed on 09/10 to 09/11 with a low point and her oxygen saturations of 53% with an average oxygen saturation of 88% on room air. Asking nursing to obtain nocturnal saturation tonight pending discharge tomorrow. I also switched her Pepcid to as needed as her GERD symptoms have resolved. INR stable within range today. Plan to discharge on her current warfarin medication dosage regimen. Remainder of plan below is relatively unchanged. * Hypoxemia with pulmonary emboli. Continue warfarin management per pharmacy. Continue oxygen as needed. * Continue incentive spirometry. * Overnight oximetry showed desaturation even on 2 L of oxygen. She should have full sleep study after discharge to rule out obstructive sleep apnea. * Continue oxygen 2 L overnight and p.r.n. during the day * Deficits to mobility and activities of daily living and motor weakness. * Initial functional independence measure 61 on 09/08/2017, improved to 76 as of 09/15/2017; to 88 as of 09/22/2017. Independent with bed mobility. Transfers with contact guard to standby assist. Ambulated 120 ft with front wheeled walker and contact guard assist. Climbed and descended 3 stairs with bilateral rails and contact guard assist. Has some knee buckling during descent. Did a car transfer with standby assist. Grooming and hygiene is done standing. Standby assist to contact guard assist for shower transfer, toilet transfer and toileting. Independent with upper body dressing and standby assist with lower body dressing. * Continue PT and OT to optimize mobility and activities of daily living toward the independent or modified independent level for discharge to home. * Cognitive effects. May still slow recovery from myxedema coma. Brain MRI showed age-related changes and microvascular ischemic changes. * Very dysexecutive. Deficits to memory, new learning, problem solving and attention. SLUMS 18/30, in dementia range. * Reduced insight. * Has preserved social interaction. * Continue Speech and Language Pathology. * Cognitive recovery from myxedema coma can take weeks to months and may be incomplete. * Nocturia and urinary incontinence overnight. * Per patient's request will discontinue furosemide. * Advise limiting fluid intake after dinner. Discussed with nursing. * Continue to monitor. * Hypertension. Continue lisinopril and metoprolol. Adequate control. * Dizziness. Not orthostatic. Per therapy staff, unlikely to be vestibular. * Dilated cardiomyopathy. Lisinopril and metoprolol are appropriate medications. Reviewed records from [facility]. * She had severe cardiomegaly on a chest x-ray. * Echocardiogram showed normal LV size with low-normal systolic function with ejection fraction of 55-55% and moderate to severe hypokinesis in the mid septal and inferior segments. * She had a nuclear perfusion scan which showed no perfusion defects. * Discontinuing furosemide and potassium supplement 09/19/2017 at patient's request. Was on 20 mg q.day starting [id number]. Slightly low potassium and tachycardia 09/15/2017. Repleted potassium with single dose 20 mEq. Decreased furosemide dose from 20 mg to 10 mg p.o. q.day on 09/15/2017. Initiated potassium chloride 10 mEq q.day on 09/15/2017 * Monitor for recurrent edema or JVD.. * Abdominal nodule. Unclear etiology. Nontender. Wonder if she may have had extravasation of blood followed by clotting from on abdominal injection of enoxaparin. She can follow up as an outpatient. Consider ultrasound. * Recent myxedema coma. Continue levothyroxine. Follow up with primary care after discharge. * Vitamin D deficiency. Transitioned from 50,000 units once a week to 2000 mg q.day of cholecalciferol. Follow up with primary care after discharge. * History of right humerus fracture. Given her long history of thyroid abnormalities, she may also have osteoporosis. Continue vitamin D. She should have a DEXA screen as an outpatient per primary care. * Prophylaxis. She already has a pulmonary embolus and she is on treatment dose of enoxaparin with transition toward warfarin. She has famotidine for GI prophylaxis. Continue discharge date of 09/24/2017, home with family.. Home PT OT and GAS AND OIL SERVICER; RN for blood draws for INR. Followup. She is to follow up with evp strategy Dr. Saba at [facility]. Primary care provider is at the [facility]. Primary care physician to determine of Endocrinology follow-up is necessary. 09/11/17 08:33 09/16/17 11:31 09/18/17 09:26 09/18/17 10:26 09/23/17 10:57 Subjective: Chief complaint: Discharge planning No acute events overnight. Patient denies any new shortness of breath or chest pain, no new numbness, tingling, or weakness. She is requesting that her Pepcid be discontinued because her heartburn went away. No other new concerns. Therapy is going well. Looking forward to discharge and discussed plan with her at length. Also discussed discharge plan with social work. Objective: Vital Signs Temp Pulse Resp BP Pulse Ox 36.8 C 95 18 127/82 H 92 09/23/17 05:59 09/23/17 08:29 09/23/17 05:59 09/23/17 08:29 09/23/17 05:59 Laboratory Results 09/15/17 06:02 09/22/17 09/23/17 09/24/17 05:59 05:59 05:59 Intake Total 540 640 240 Output Total 1150 650 Balance -610 -10 240 PT 24.3 SEC (12.0-15.0) H 09/23/17 06:00 INR 2.18 (0.83-1.16) H 09/23/17 06:00 Physical Exam - Physical Exam General Appearance: WD/WN, alert, no apparent distress EENT: No scleral icterus (R), No scleral icterus (L) Respiratory: lungs clear, normal breath sounds, No respiratory distress, No accessory muscle use, No rales, No rhonchi, No wheezing Cardiac/Chest: normal peripheral pulses, regular rate, rhythm, edema (Trace bilateral) Skin: normal color, warm/dry, No cyanosis, No diaphoresis Extremities: non-tender, pedal edema (Trace bilateral) Neuro/Psych: alert, normal mood/affect, oriented x 3 ICD10 Worksheet Patient Problems: Problems Problem Status Onset Pulmonary embolism Acute
--- NOTE | 2017-09-23 12:31 | PDDCSUM ---
Discharge Summary Discharge Summary: Name: Page Smith Admission date: 09/03/2017 Discharge date: 09/24/2017, anticipated Discharging physician: Piyush Marshall MD, Raudel Jacobs MD Admitting diagnosis: 17.9, medically complex conditions, pulmonary embolus and myxedema coma Discharge diagnosis: Same Comorbid diagnoses: Impairments in mobility and self-care, cognitive impairments, nocturia and urinary incontinence, hypertension, dizziness, dilated cardiomyopathy, abdominal nodule, status post myxedema coma and delirium , vitamin-D deficiency, history of right humerus fracture Consultations: physical therapy, occupational therapy, speech language pathology , dietary, social work Procedures: None Reason for admission: Please see the full history and physical by Dr. Raudel Jacobs from 09/03/2017 for full details, however briefly the patient was admitted from home after a prior stay at [facility] after prolonged stay for myxedema coma. She came to [facility] with a pulmonary embolus on 08/30/2017 and was found to have impairments in mobility and self-care needing inpatient rehabilitation. Rehabilitation course: She made steady improvements in rehabilitation over her stay, she had a functional independence measure that was initially 61 on 2017 and most recently improved to 88 as of 09/22/2017, consistent with an assisted living level of care. She is essentially independent with bed mobility and transferring with contact guard to standby assistance. She is ambulating with front wheel walker and contact guard assist. She is ambulating stairs with rails and contact guard assist, she had problems with knee buckling during much of her rehabilitation but this is greatly improved. She does get some contact guard assist and standby assist for ADLs including toileting and transferring. She continued to have cognitive impairments mostly in executive function after the recovery from the myxedema coma. She will continue to require 24 hr assistance on discharge. Regarding her dilated cardiomyopathy, she did have problems with fluid overload at times on inpatient rehabilitation and benefit from low-dose furosemide and potassium supplementation. After changing her diet to a cardiac diet with low sodium this is improved and she is being discharged without furosemide but this should be monitored with daily weights on discharge. She is also found to have an abdominal nodule that can be followed as an outpatient. Regarding her recent myxedema coma she is continuing on levothyroxine and she is to follow up with her primary care physician who can make the ultimate decision on whether not she is to be evaluated again by Endocrinology. Discharge plan: Patient is discharging to home with nursing for blood draws and warfarin management, PT, OT, and speech therapy. She will also be getting 24 hr assistance from family Medications at discharge: Cholecalciferol 2000 units daily Warfarin 2.5 mg every Friday, Friday, Friday, , Friday, Friday Warfarin 5 mg every Friday Acetaminophen 650 mg p.o. Q.4 hours p.r.n. For pain Levothyroxine 125 mcg p. O. Daily Lisinopril 2.5 mg p. O. Daily Metoprolol 25 mg p. O. Daily Famotidine 20 mg p. O. Twice daily p.r.n. For reflux Pending studies: None Issues to be addressed at follow-up: Warfarin to be managed by primary care, blood draws at home by home health RN. Patient follow up with primary care physician for ongoing management of hypothyroidism and possible coordination with Endocrinology as needed. Patient also to have follow-up with cardiology at [facility] Follow up: Follow up with primary care physician, Dr. Angelica Bain at [facility], cardiology Dr. Saba at [facility], possibly Endocrinology pending decision by primary care. This document may be attended by Dr. Jacobs on the day of discharge.
[2017-09-23] MEDS: WARFARIN SODIUM 2.5 MG TAB PO SCH (15:58)
[2017-09-24] MEDS: LEVOTHYROXINE 125 MCG TAB PO SCH (05:46)
[2017-09-24] MEDS: METOPROLOL SUCCINATE XR 25 MG TAB PO SCH (08:09)
[2017-09-24] MEDS: LISINOPRIL 2.5 MG TAB PO SCH (08:09)
[2017-09-24] MEDS: CHOLECALCIFEROL VIT D3 2,000 UNITS TAB/CAP PO SCH (08:09)
[2017-09-24 08:10] VITALS: BP 122/80
[2017-09-24 08:31] LABS: INR 2.01 (0.83-1.16); PROTIME(PATIENT) 22.8 SEC (12.0-15.0)
== END 2017-09-24 13:44 | disposition home health service (06) | DRG 134 ==
LOC: BREH 15:30
PROVIDERS: ADMIT Internal Medicine; ATTEND Internal Medicine
PROC: F08Z4ZZ Home Management Treatment (ICD-10-PCS; principal; 2017-09-03)
PROC: F08Z7ZZ Vocational Activities and Functional Community or Work Reintegration Skills Treatment (ICD-10-PCS; principal; 2017-09-03)
PROC: F0636ZZ Communicative/Cognitive Integration Skills Treatment of Neurological System - Whole Body (ICD-10-PCS; principal; 2017-09-03)
PROC: F07M3ZZ Motor Function Treatment of Musculoskeletal System - Whole Body (ICD-10-PCS; principal; 2017-09-03)
DX: I26.99 Other pulmonary embolism without acute cor pulmonale (principal); R09.02 Hypoxemia; I42.0 Dilated cardiomyopathy; I50.32 Chronic diastolic (congestive) heart failure; R53.81 Other malaise; E55.9 Vitamin D deficiency, unspecified; E03.9 Hypothyroidism, unspecified; I10 Essential (primary) hypertension; R33.9 Retention of urine, unspecified; R41.844 Frontal lobe and executive function deficit; R19.03 Right lower quadrant abdominal swelling, mass and lump; R42 Dizziness and giddiness; Z79.01 Long term (current) use of anticoagulants
CPT/HCPCS: 92507-GN; 92508-GN; 92522-GN; 97110-GO; 97110-GP; 97112-GO; 97112-GP; 97116-GP; 97161-GP; 97166-GO; 97530-GO; 97530-GP; 97535-GO; 97542-GP; 99366-GO; G0515-GO; J1650

== ENCOUNTER 2017-10-01 12:33 | Emergency (ER) | payer MEDICAID ==
[2017-10-01] MEDS ORDERED: NS 1,000 ML IV ONE (13:10)
--- NOTE | 2017-10-01 13:14 | EDPHY ---
H & P Stated Complaint: home health sent in for low heart rate, hr is irregular Time Seen by Provider: 10/01/17 13:07 HPI/ROS: CHIEF COMPLAINT: Bradycardia HISTORY OF PRESENT ILLNESS: Patient is a 64-year-old female with no significant cardiac history other than hypertension on a beta-keith who was sent by her home health nurse who noticed that her heart rate was 53. She was asymptomatic at the time. She states however that she was then preparing to do physical therapy and is nervous about physical therapy because her maintenance trainer is quite strict and at that time she felt slightly anxious and that her knees were shaking. This was all about 3 hr ago. She now presents to the emergency department with a normal heart rate and is asymptomatic. No chest pain, no shortness of breath, no diaphoresis, no lightheadedness. She also has a history of hypothyroidism. REVIEW OF SYSTEMS: Constitutional: denies: chills, fever, recent illness, recent injury EENTM: denies: blurred vision, double vision, nose congestion Respiratory: denies: cough, shortness of breath Cardiac: See HPI denies: chest pain, irregular heart rate, lightheadedness, palpitations Gastrointestinal/Abdominal: denies: abdominal pain, diarrhea, nausea, vomiting, blood streaked stools Genitourinary: denies: dysuria, frequency, hematuria, pain Musculoskeletal: denies: joint pain, muscle pain Skin: denies: lesions, rash, jaundice, bruising Neurological: denies: headache, numbness, paresthesia, tingling, dizziness, weakness Hematologic/Lymphatic: denies: blood clots, easy bleeding, easy bruising Immunologic/allergic: denies: HIV/AIDS, transplant EXAM: GENERAL: Well-appearing, well-nourished and in no acute distress. HEAD: Atraumatic, normocephalic. EYES: Pupils equal round and reactive to light, extraocular movements intact, sclera anicteric, conjunctiva are normal. ENT: TMs normal, nares patent, oropharynx clear without exudates. Moist mucous membranes. NECK: Normal range of motion, supple without lymphadenopathy or JVD. LUNGS: Breath sounds clear to auscultation bilaterally and equal. No wheezes rales or rhonchi. HEART: Regular rate and rhythm without murmurs, rubs or gallops. ABDOMEN: Soft, nontender, normoactive bowel sounds. No guarding, no rebound. No masses appreciated. BACK: No CVA tenderness, no spinal tenderness, step-offs or deformities EXTREMITIES: Normal range of motion, no pitting or edema. No clubbing or cyanosis. NEUROLOGICAL: Cranial nerves II through XII grossly intact. Normal speech, normal gait. 5/5 strength, normal movement in all extremities, normal sensation PSYCH: Normal mood, normal affect. SKIN: Warm, dry, normal turgor, no visible rashes or lesions. Source: Patient, Family Exam Limitations: No limitations - Personal History Current Tetanus Diphtheria and Acellular Pertussis (TDAP): Unsure - Medical/Surgical History Hx Asthma: No Hx Chronic Respiratory Disease: No Hx Diabetes: No Hx Cardiac Disease: No Hx Renal Disease: No Hx Cirrhosis: No Hx Alcoholism: No Hx HIV/AIDS: No Hx Splenectomy or Spleen Trauma: No Other PMH: Hypertension, hypothyroidism, myexedma coma (cognitive delays) - Family History Significant Family History: No pertinent family hx - Social History Smoking Status: Former smoker Alcohol Use: None Constitutional: Initial Vital Signs Temperature (C) 36.7 C 10/01/17 12:37 Heart Rate 80 10/01/17 12:37 Respiratory Rate 16 10/01/17 12:37 Blood Pressure 167/155 H 10/01/17 12:37 O2 Sat (%) 97 10/01/17 12:37 O2 Delivery Mode Room Air Allergies/Adverse Reactions: No Known Allergies Allergy (Verified 10/01/17 12:42) Home Medications: Medication Instructions Recorded CEPHALEXIN 10/01/17 Famotidine 10/01/17 Levothyroxine 10/01/17 Lisinopril 10/01/17 Metoprolol Succinate 10/01/17 Xarelto 10/01/17 Medical Decision Making - Diagnostics EKG Interpretation: An EKG obtained and was read and documented in trace view. Please see trace view for full reading and report. Sinus rhythm, no acute ischemic changes or arrhythmias. ED Course/Re-evaluation: 2:30 p.m. We discussed her lab results which are reassuring. Her heart rate is been in the 80s for the majority of her stay here. She remains asymptomatic. She is eager to go home and declines further workup or observation. Her will take her. Discussed indications for returning. Differential Diagnosis: Partial list of the Differential diagnosis considered include but were not limited to; bradycardia, arrhythmia, syncope, presyncope, hypothyroidism and although unlikely based on the history and physical exam, I also considered acute coronary disease, infection. I discussed these differential diagnoses and the plan with the patient as well as the usual and expected course. The patient understands that the diagnosis is provisional and that in medicine we are not always correct and that further workup is often warranted. Usual and customary warnings were given. All of the patient's questions were answered. The patient was instructed to return to the emergency department should the symptoms at all worsen or return, otherwise to followup with the physician as we discussed. - Data Points Laboratory Results: Laboratory Results 10/01/17 13:24 10/01/17 13:24 10/01/17 10/01/17 10/01/17 13:24 13:24 13:24 WBC 5.02 10^3/uL 10^3/uL (3.80-9.50) RBC 3.79 10^6/uL L 10^6/uL (4.18-5.33) Hgb 12.3 g/dL L g/dL (12.6-16.3) Hct 37.2 % L % (38.0-47.0) MCV 98.2 fL fL (81.5-99.8) MCH 32.5 pg pg (27.9-34.1) MCHC 33.1 g/dL g/dL (32.4-36.7) RDW 13.2 % % (11.5-15.2) Plt Count 320 10^3/uL 10^3/uL (150-400) MPV 12.9 fL H fL (8.7-11.7) Neut % (Auto) 38.2 % L % (39.3-74.2) Lymph % (Auto) 50.8 % H % (15.0-45.0) Granite % (Auto) 9.0 % % (4.5-13.0) Eos % (Auto) 1.0 % % (0.6-7.6) Baso % (Auto) 0.8 % % (0.3-1.7) Nucleat RBC Rel Count 0.0 % % (0.0-0.2) Absolute Neuts (auto) 1.92 10^3/uL 10^3/uL (1.70-6.50) Absolute Lymphs (auto) 2.55 10^3/uL 10^3/uL (1.00-3.00) Absolute Monos (auto) 0.45 10^3/uL 10^3/uL (0.30-0.80) Absolute Eos (auto) 0.05 10^3/uL 10^3/uL (0.03-0.40) Absolute Basos (auto) 0.04 10^3/uL 10^3/uL (0.02-0.10) Absolute Nucleated RBC 0.00 10^3/uL 10^3/uL (0-0.01) Immature Gran % 0.2 % % (0.0-1.1) Immature Gran # 0.01 10^3/uL 10^3/uL (0.00-0.10) PT 27.5 SEC H SEC (12.0-15.0) INR 2.56 H (0.83-1.16) APTT 47.0 SEC H SEC (23.0-38.0) Sodium 139 mEq/L mEq/L (135-145) Potassium 4.0 mEq/L mEq/L (3.5-5.2) Chloride 102 mEq/L mEq/L (97-110) Carbon Dioxide 19 mEq/l L mEq/l (22-31) Anion Gap 18 mEq/L H mEq/L (8-16) BUN 3 mg/dL L mg/dL (7-23) Creatinine 0.5 mg/dL L mg/dL (0.6-1.0) Estimated GFR > 60 Glucose 90 mg/dL mg/dL (70-100) Calcium 9.4 mg/dL mg/dL (8.5-10.4) Troponin I < 0.012 ng/mL ng/mL (0.000-0.034) TSH 0.868 uIU/mL uIU/mL (0.465-4.680) Free T4 3.09 ng/dL H ng/dL (0.59-2.19) Medications Given: Discontinued Medications Sodium Chloride (Ns) 1,000 mls @ 0 mls/hr IV EDNOW ONE; Wide Open PRN Reason: Protocol Stop: 10/01/17 13:11 Last Admin: 10/01/17 13:25 Dose: 1,000 mls Departure - Departure Disposition: Home, Routine, Self-Care Clinical Impression: Bradycardia Condition: Fair Instructions: Bradycardia (ED) Referrals: BRIAN MUNROE [Other] - As per Instructions
--- NOTE | 2017-10-01 13:17 | CPEKG ---
Heart Rate: 92 RR Interval: 652 P-R Interval: 125 QRSD Interval: 86 QT Interval: 372 QTC Interval: 461 P [place]: 0 QRS [place]: -2 T Wave [place]: 25 EKG Severity - NORMAL ECG - EKG Impression: SINUS RHYTHM Electronically Signed By: David Kirkland 01-Oct-2017 13:25:56
[2017-10-01 13:31] LABS: PLATELET COUNT 320 10^3/uL (150-400)
[2017-10-01 13:39] LABS: INR 2.56 (0.83-1.16); PROTIME(PATIENT) 27.5 SEC (12.0-15.0)
[2017-10-01 14:11] VITALS: BP 125/83
== END 2017-10-01 14:45 | disposition home or self-care (01) ==
DX: R00.1 Bradycardia, unspecified (principal); E86.9 Volume depletion, unspecified; I10 Essential (primary) hypertension; Z79.01 Long term (current) use of anticoagulants; Z87.891 Personal history of nicotine dependence

== ENCOUNTER → 2018-06-08 | Outpatient (CLI) | payer OTHER | LOC: CIMAGING 09:17 | PROVIDERS: ATTEND Family Medicine | DX: R29.2 Abnormal reflex (principal) | CPT/HCPCS: 73565-PO ==

== ENCOUNTER → 2018-06-15 | Outpatient (CLI) | payer OTHER | LOC: BRMIMAGING 11:25 | PROVIDERS: ATTEND Family Medicine | DX: M81.0 Age-related osteoporosis without current pathological fracture (principal); M85.89 Other specified disorders of bone density and structure, multiple sites; E07.9 Disorder of thyroid, unspecified; E28.8 Other ovarian dysfunction; Z78.0 Asymptomatic menopausal state; Z87.81 Personal history of (healed) traumatic fracture ==